=== PATIENT | male | born 1955 | race Two or more races ===

== ENCOUNTER 2017-11-16 14:28 | Inpatient (IN) | payer OTHER ==
[~2017-11-16] VITALS: Ht 190.5 cm; Wt 128.4 kg
--- NOTE | 2017-11-16 14:35 | NUR ---
BIB RA FROM A PARKING LOT AFTER A SYNCOPAL EPISODE,C/O BILAT. KNEE PAIN DUE TO FALL. BS 344 IN FIELD. IV ESTABLISHED IN FIELD ON LFA, 20G. A/OX 4 AT THIS TIME. BREATHING EVEN AND UNLABORED. NO SOB, NAD, VITALS STABLE. SAFETY AND COMFORT MEASURES IN PLACE. AWAITING MD ORDERS.
[2017-11-16 14:51] LABS: BASOPHILS % (AUTO) 0.4 % (0.0-2.0); EOSINOPHILS % (AUTO) 2.3 % (0.0-6.0); HEMATOCRIT 34 % (39-51); HEMOGLOBIN 11.3 g/dL (13.5-17.5); LYMPHOCYTES # (AUTO) 1.2 /CMM (0.8-4.8); LYMPHOCYTES % (AUTO) 18.7 % (20.0-44.0); MEAN CORPUSCULAR HGB CONC 33 g/dl (31.0-36.0); MEAN CORPUSCULAR VOLUME 79 fL (80-96); MONOCYTES # (AUTO) 0.7 /CMM (0.1-1.30); MONOCYTES % (AUTO) 10.6 % (2.0-12.0); NEUTROPHILS # (AUTO) 4.4 /CMM (1.8-8.9); PLATELET COUNT (AUTO) 358 /CMM (150-450); RDW COEFFICIENT OF VARIATION 14.1 (11.5-15.0); RED BLOOD CELL COUNT(AUTO) 4.34 MIL/uL (4.5-6.0); WHITE BLOOD COUNT (AUTO) 6.4 K/uL (4.3-11.0)
[2017-11-16 15:01] LABS: CALCIUM, SERUM 8.9 mg/dL (8.5-10.1); CREATININE 2.7 mg/dL (0.6-1.3); POTASSIUM 4.2 mmol/L (3.5-5.1)
--- NOTE | 2017-11-16 15:02 | NUR ---
CONTAINER REPAIRER AT BEDSIDE FOR BLOOD DRAW.
[2017-11-16 15:06] LABS: INR 1.12 (0.85-1.15)
[2017-11-16 15:10] LABS: TROPONIN I 0.028 ng/mL (0.00-0.056)
--- NOTE | 2017-11-16 15:12 | NUR ---
PATIENT TAKEN TO CT VIA STRETCHER.
--- NOTE | 2017-11-16 15:25 | NUR ---
PATIENT RETURNED FROM CT IN STABLE CONDITION.
[2017-11-16] MEDS ORDERED: HYDROCODONE/APAP 5/325MG 1 EACH TABLET PO ONE (17:00)
[2017-11-16] MEDS ORDERED: HYDROCODONE/APAP 5/325MG 1 EACH TABLET ONE (17:06)
--- NOTE | 2017-11-16 17:16 | NUR ---
CALLED [facility] FOR PANEL CALL AND ANDRAE FUENTES WAS PAGED.
[2017-11-16] MEDS ORDERED: IV NS 0.9% 1,000 ML BAG IV ONE (17:30)
--- NOTE | 2017-11-16 17:54 | NUR ---
PT IS ASSIGNED TO [facility]#: [id number], PT IS DIAGNOSED WITH SYNCOPE, AND ANDRAE FUENTES IS THE ACCEPTING MD
--- NOTE | 2017-11-16 18:20 | NUR ---
REPORT GIVEN TO MOISES NEWTON. PT TRANSPORTED IN STABLE CONDITION.
--- NOTE | 2017-11-16 18:25 | NUR ---
RN NOTE RECEIVED REPORT FROM HAROON NUÑEZ NURSE. RECEIVED PATIENT 62 YEAR OLD MALE BROUGHT IN TO THE HOSPITAL FROM PARKING LOT AFTER A SYNCOPAL EPISODE, C/O BILATERAL KNEE PAIN. PATIENT IS ALERT AND ORIENTED X3 PATIENT IS BREATHING EVEN AND UNLABORED WITH NO DISTRESS NOTED. PATIENT IS ABLE TO VERBALIZE NEEDS AND MAKE THINGS KNOW. REORIENTED PATIENT TO USING THE CALL LIGHT AND T.V. PATIENT IS C/O OF LEFT KNEE PAIN 03/06, FROM REPORT PATIENT ALREADY RECEIVED NORCO FOR PAIN. ELEVATED PATIENTS LEFT LEG ON PILLOW FOR COMFORT. PATIENT ON SANDER AND POLISHER SINUS RHYTHM HR OF 88. RIGHT FA IV SITE GAUGE 20 INTACT AND PATENT. BED LOCKED AND LOW POSITION. ALL SAFETY MEASURES DONE. BED ALARM IN PLACE. PLACED CALL LIGHT WITH IN REACH. WILL ENDORSE TO NEXT SHIFT TO CONTINUE CONTINUITY OF CARE.
[2017-11-16] MEDS ORDERED: IV NS 0.9% 1,000 ML IV PRN (18:28)
[2017-11-16] MEDS ORDERED: ZOLPIDEM TARTRATE 5 MG TABLET PO PRN (18:30)
[2017-11-16] MEDS ORDERED: Z GUARD REMEDY 2 OZ OINT TP PRN (18:30)
[2017-11-16] MEDS ORDERED: MAGNESIUM HYDROXIDE 30 ML UDC PO PRN (18:30)
[2017-11-16] MEDS ORDERED: ONDANSETRON HCL/PF 4 MG/2 ML VIAL IVP PRN (18:30)
[2017-11-16] MEDS ORDERED: HYDROCODONE/APAP 10/325MG 1 EA TABLET PO PRN (18:30)
[2017-11-16] MEDS ORDERED: ACETAMINOPHEN 325 MG TABLET PO PRN (18:30)
[2017-11-16] MEDS ORDERED: HYDROCODONE/APAP 5/325MG 1 EACH TABLET PO PRN (18:30)
[2017-11-16] MEDS ORDERED: MAG HYDROX/AL HYDROX/SIMETH 30 ML UDC PO PRN (18:30)
[2017-11-16 18:43] VITALS: BP 130/67
[2017-11-16] MEDS ORDERED: TRIA15OI2 TP (19:17)
[2017-11-16] MEDS ORDERED: LORA10TA7 PO (19:17)
[2017-11-16] MEDS ORDERED: BUME2TAB3 PO (19:17)
[2017-11-16] MEDS ORDERED: SENN-167 PO (19:17)
[2017-11-16] MEDS ORDERED: GABA-534 PO (19:17)
[2017-11-16] MEDS ORDERED: AMIT50TA3 PO (19:17)
[2017-11-16] MEDS ORDERED: CARV25TA2 PO (19:17)
[2017-11-16] MEDS ORDERED: SIME80TA15 PO (19:17)
[2017-11-16] MEDS ORDERED: APRE30TA2 PO (19:17)
[2017-11-16] MEDS ORDERED: DICL100G16 TP (19:17)
[2017-11-16] MEDS ORDERED: INSU100V7 SQ (19:17)
[2017-11-16] MEDS ORDERED: ATOR80TA PO (19:17)
[2017-11-16] MEDS ORDERED: SECU150S SQ (19:17)
[2017-11-16] MEDS ORDERED: DOCU100C36 PO (19:17)
[2017-11-16] MEDS ORDERED: INSU100I26 SQ (19:17)
[2017-11-16] MEDS ORDERED: RANO500T3 PO (19:17)
[2017-11-16] MEDS ORDERED: BLOO-668 IN (19:17)
[2017-11-16] MEDS ORDERED: HYDR-3026 PO (19:17)
[2017-11-16] MEDS ORDERED: CLOP75TA15 PO (19:17)
[2017-11-16] MEDS ORDERED: ISOS60TA4 PO (19:17)
[2017-11-16] MEDS ORDERED: CLOB15CR4 TP (19:17)
[2017-11-16] MEDS ORDERED: FLUO15CR TP (19:17)
[2017-11-16] MEDS ORDERED: BENA40TA8 PO (19:17)
[2017-11-16] MEDS ORDERED: BISA-79 PO (19:17)
[2017-11-16] MEDS ORDERED: PANT40TA4 PO (19:22)
[2017-11-16] MEDS ORDERED: INSU100V27 SQ (19:22)
[2017-11-16] MEDS ORDERED: AMLO10TA6 PO (19:22)
[2017-11-16] MEDS ORDERED: ASPI-1169 PO (19:22)
--- NOTE | 2017-11-16 19:30 | NUR ---
RN NOTES PT RECEIVED IN BED. PT A/O X3. POSITIVE LEFT LEG SWELLING AND PAIN 10/10 PAIN, NEGATIVE OPEN WOUNDS. LEFT LEG MINOR SWELLING WITH MINOR A MINOR SUPERFICIAL ABRASION. PT NEGATIVE DISTRESS. PT GIVEN NORCO FOR PAIN RESULTING 0/10 PAIN AFTER 1 HOUR. WILL CONTINUE TO MONITOR. BED LOCKED AND LOWEST POSITION. CALL LIGHT WITHIN REACH.
[2017-11-16] MEDS: ENOXAPARIN SODIUM 40 MG/0.4 ML DISP.SYRIN SQ SCH (19:51)
[2017-11-16 20:00] VITALS: BP 130/67
[2017-11-16] MEDS ORDERED: DOCUSATE SODIUM 100 MG CAPSULE PO PRN (20:00)
[2017-11-16] MEDS ORDERED: BLOOD SUGAR DIAGNOSTIC 1 EACH STRIP IN SCH (20:00)
[2017-11-16] MEDS ORDERED: BISACODYL (5 MG) 5 MG TABLET.DR PO PRN (20:00)
[2017-11-16] MEDS ORDERED: DEXTROSE 50%-WATER 50 ML DISP.SYRIN IV PRN (20:00)
[2017-11-16] MEDS ORDERED: SIMETHICONE 80 MG TAB.CHEW PO PRN (20:00)
[2017-11-16] MEDS ORDERED: SECUKINUMAB 150 MG SQ SCH (20:00)
[2017-11-16] MEDS ORDERED: CLOBETASOL 0.05% CREAM 15 GM TUBE TP PRN (20:00)
[2017-11-16] MEDS: *INSULIN REGULAR(HUMULIN R)HUM 100 UNIT/ML VIAL SQ PRN (20:23)
[2017-11-16] MEDS ORDERED: DICLOFENAC TOPICAL 100 GM GEL..GM. TP SCH (21:00)
[2017-11-16] MEDS: INSULIN GLARGINE, 100 UNIT/ML CARTRIDGE SQ SCH (21:36)
[2017-11-16] MEDS: CARVEDILOL 12.5 MG TABLET PO SCH (21:52)
[2017-11-16] MEDS: AMITRIPTYLINE HCL 25 MG TABLET PO SCH (21:52)
[2017-11-16] MEDS: BLOOD SUGAR DIAGNOSTIC 1 EACH STRIP VI SCH (21:59)
[2017-11-16 22:00] VITALS: BP 130/67
[2017-11-17] VITALS (8 sets, daily range): BP systolic 87–127; BP diastolic 41–73
[2017-11-17 06:51] LABS: BASOPHILS % (AUTO) 0.5 % (0.0-2.0); EOSINOPHILS % (AUTO) 4.5 % (0.0-6.0); HEMATOCRIT 32 % (39-51); HEMOGLOBIN 10.6 g/dL (13.5-17.5); LYMPHOCYTES # (AUTO) 1.6 /CMM (0.8-4.8); LYMPHOCYTES % (AUTO) 24.6 % (20.0-44.0); MEAN CORPUSCULAR HGB CONC 34 g/dl (31.0-36.0); MEAN CORPUSCULAR VOLUME 80 fL (80-96); MONOCYTES # (AUTO) 0.9 /CMM (0.1-1.30); MONOCYTES % (AUTO) 13.1 % (2.0-12.0); NEUTROPHILS # (AUTO) 3.8 /CMM (1.8-8.9); NEUTROPHILS % (AUTO) 57.3 % (43.0-81.0); PLATELET COUNT (AUTO) 312 /CMM (150-450); RDW COEFFICIENT OF VARIATION 15.2 (11.5-15.0); RED BLOOD CELL COUNT(AUTO) 3.97 MIL/uL (4.5-6.0); WHITE BLOOD COUNT (AUTO) 6.6 K/uL (4.3-11.0)
--- NOTE | 2017-11-17 07:17 | NUR ---
RN NOTES NEGATIVE CHANGE THROUGHOUT SHIFT. PT STABLE CONDITION. BED LOCKED/ LOWEST POSITON. CALL LIGHT WITHIN REACH. WILL ENDORSE TO ONCOMING NURSE.
[2017-11-17 07:24] LABS: BILIRUBIN,TOTAL 0.5 mg/dL (0.2-1.0); CALCIUM, SERUM 8.9 mg/dL (8.5-10.1); CREATININE 2.5 mg/dL (0.6-1.3); MAGNESIUM 2.3 mg/dL (1.8-2.4); POTASSIUM 3.8 mmol/L (3.5-5.1); TOTAL PROTEIN, SERUM 8.1 g/dL (6.4-8.2)
[2017-11-17 07:40] LABS: THYROID STIMULATING HORMONE 0.25 uIU/mL (0.358-3.74)
[2017-11-17] MEDS: ISOSORBIDE MONONITRATE (30MG) 30 MG TAB.SR.24H PO SCH ×2 (08:00→15:19)
--- NOTE | 2017-11-17 08:03 | NUR ---
CONSTRUCTION CHECKER NOTE RESTING COMFORTABLY IN BED ,ALL NEEDS ATTENDED, ON NPO STATUS ORDERED AT THIS TIME , RT FA HL INTACT BE IN LOWEST AND LOCKED POSITION , ON E RA NO SOB NOTED ,ON TELE MONITOR SR ,CALL LIGHT WITHIN REACH , WILL CONT TO MONITOR CLOSELY
[2017-11-17] MEDS ORDERED: ATORVASTATIN 40 MG TABLET PO SCH (09:00)
[2017-11-17] MEDS: BENAZEPRIL HCL 20 MG TABLET PO SCH (09:00)
[2017-11-17] MEDS: CARVEDILOL 12.5 MG TABLET PO SCH ×2 (09:00→21:19)
[2017-11-17] MEDS ORDERED: Medication Not On Formulary EA (Ranolazine (Ranexa) 500 MG) PO SCH (09:00)
[2017-11-17] MEDS ORDERED: Medication Not On Formulary EA (Apremilast (Otezla) 30 MG) PO SCH (09:00)
[2017-11-17] MEDS: AMLODIPINE BESYLATE 10 MG TABLET PO SCH (09:00)
[2017-11-17] MEDS ORDERED: METOLAZONE 2.5 MG TABLET PO SCH (09:00)
[2017-11-17] MEDS: PANTOPRAZOLE 40 MG VIAL IV SCH (09:01)
[2017-11-17] MEDS: ASPIRIN 81 MG TAB.CHEW PO SCH (09:02)
[2017-11-17] MEDS: GABAPENTIN 300 MG CAPSULE PO SCH ×3 (09:02→17:09)
[2017-11-17] MEDS: CLOPIDOGREL BISULFATE 75 MG TABLET PO SCH (09:08)
[2017-11-17] MEDS: INSULIN GLARGINE, 100 UNIT/ML CARTRIDGE SQ SCH ×2 (09:14→17:12)
[2017-11-17] MEDS: BLOOD SUGAR DIAGNOSTIC 1 EACH STRIP VI SCH ×4 (09:19→21:18)
--- NOTE | 2017-11-17 09:57 | NUR ---
FURNITURE ASSEMBLER AND INSTALLER NOTE SEEN BY DR PORTER ON OK TO START TO EAT , STARTED ON IVF ORDERED
--- NOTE | 2017-11-17 11:11 | NUR ---
LABORER CONCRETE PLANT NOTE PER PHARMACY ASKED PATIENT TO BRING HOME MEDS HEIDI VALDES , STATED THAT WILL ASK FAMILY TO BRING
[2017-11-17] MEDS: INSULIN REGULAR, HUMAN 100 UNIT/ML 3 ML VIAL SQ PRN ×2 (12:21→21:18)
--- NOTE | 2017-11-17 12:38 | NUR ---
SHEETMETAL PATTERNMAKER NOTE SEEN BY DR KRAUSE DIRECTOR OF LOSS PREVENTION NOTIFIED ABOUT RESULT ORTHOSTATIC PB , OK TO STOP IVF Addendum: 11/17/17 at 1241 by DAVID ROE RN NOTIFIED TO DR MAK THAT BP MEDS WERE HOLD WAS BP 97/52
--- NOTE | 2017-11-17 14:20 | NUR ---
CONCRETE FLOAT MAKER NOTE US DONE ORDERED
[2017-11-17] MEDS: MORPHINE SULFATE INJ 4 MG/ML DISP.SYRIN IV PRN ×2 (14:52→21:18)
--- NOTE | 2017-11-17 15:05 | NUR ---
BRAND ADVOCATE NOTE PT EVAL DONE, ABLE TO AMBULATE WITH WALKER WITH MIN ASSISTANCE WILL F\U
[2017-11-17 17:05] LABS: CREATININE, URINE 80.4 MG/DL (30.0-125.0); URINE TOTAL PROTEIN 14.7 mg/dL (0-11.9)
[2017-11-17] MEDS: AMITRIPTYLINE HCL 25 MG TABLET PO SCH (17:09)
[2017-11-17] MEDS: SENNOSIDES 8.6 MG TABLET PO SCH (17:10)
--- NOTE | 2017-11-17 17:20 | NUR ---
SENIOR QA AUTOMATION ENGINEER NOTE CALLED TO ZENAIDA TORRES NOTIFIED THAT LT KNEE PAIN NORCO AND MORPHINE 2 MG IV WAS GIVEN AWARE OF X RAY LT KNEE STATED THAT WILL SEE PATIENT TOMORROW, OK TO PLACE ICE PACK AT THIS TIME ,WILL F\U Addendum: 11/17/17 at 1750 by DAVID ROE RN ICE PACK APPLIED WILL CONT TO MONITOR
[2017-11-17 17:27] LABS: APPEARANCE,URINE CLEAR (CLEAR); BILIRUBIN,URINE NEGATIVE (NEGATIVE); BLOOD, URINE NEGATIVE Ery/uL (NEGATIVE); COLOR,URINE YELLOW (YELLOW); KETONES,URINE NEGATIVE (NEGATIVE); LEUKOCYTE ESTERASE ,URINE NEGATIVE (NEGATIVE); NITRITE, URINE NEGATIVE (NEGATIVE); PH,URINE 5.5 (5.0-8.0); PROTEIN,URINE NEGATIVE (NEGATIVE); UGLUCOSE NEGATIVE (NEGATIVE); UROBILINOGEN,URINE 0.2 EU/dL (0.2)
[2017-11-17 17:56] LABS: EOSINOPHIL,URINE None Seen
--- NOTE | 2017-11-17 18:55 | NUR ---
MECHANICAL FITTER NOTE CAROTID STUDY DONE ORDERED, HAVING DINNER , ABLE TO FED SELF
--- NOTE | 2017-11-17 19:20 | NUR ---
TARIFF EXPERT OPENING NOTES RECEIVED REPORT FROM DAVID NEWTON. PATIENT A/A/O X3, ABLE TO MAKE NEEDS KNOWN. BREATHING EVEN & UNLABORED, TOLERATING ROOM AIR. ON TELE W/ SINUS RHYTHM, HR 82. NO RESPIRATORY OR CARDIAC DISTRESS NOTED. RIGHT FOREARM IV #20 INTACT & PATENT W/ DRESSING CDI, SALINE LOCKED. SKIN WARM, DRY & INTACT. SOME SWELLING NOTED ON LEFT KNEE. PATIENT C/O LEFT KNEE PAIN 2 OUT OF 10[address] ADVISED TO [address] ICE BAG & REST KNEE. PATIENT ABLE TO USE URINAL & AMBULATE TO BATHROOM W/ ASSIST. SAFETY MEASURES IN PLACE & INSTRUCTED TO USE CALL LIGHT FOR ASSISTANCE. WILL CONTINUE TO MONITOR.
[2017-11-17] MEDS: ENOXAPARIN SODIUM 40 MG/0.4 ML DISP.SYRIN SQ SCH (21:17)
[2017-11-18] VITALS: BP 111/56
[2017-11-18 04:00] VITALS: BP_SYST 103; BP_DIAS 55; BP_DIAS 65
[2017-11-18 06:52] LABS: BASOPHILS % (AUTO) 0.6 % (0.0-2.0); EOSINOPHILS % (AUTO) 5.6 % (0.0-6.0); HEMATOCRIT 31 % (39-51); HEMOGLOBIN 10.4 g/dL (13.5-17.5); LYMPHOCYTES # (AUTO) 1.6 /CMM (0.8-4.8); LYMPHOCYTES % (AUTO) 28.5 % (20.0-44.0); MEAN CORPUSCULAR HGB CONC 33 g/dl (31.0-36.0); MEAN CORPUSCULAR VOLUME 79 fL (80-96); MONOCYTES # (AUTO) 0.6 /CMM (0.1-1.30); MONOCYTES % (AUTO) 10.4 % (2.0-12.0); NEUTROPHILS % (AUTO) 54.9 % (43.0-81.0); PLATELET COUNT (AUTO) 337 /CMM (150-450); RDW COEFFICIENT OF VARIATION 15.3 (11.5-15.0); RED BLOOD CELL COUNT(AUTO) 3.91 MIL/uL (4.5-6.0); WHITE BLOOD COUNT (AUTO) 5.6 K/uL (4.3-11.0)
[2017-11-18 07:08] LABS: ALBUMIN 2.9 g/dL (3.4-5.0); BILIRUBIN,TOTAL 0.4 mg/dL (0.2-1.0); CALCIUM, SERUM 8.8 mg/dL (8.5-10.1); CREATININE 1.8 mg/dL (0.6-1.3); MAGNESIUM 2.1 mg/dL (1.8-2.4); TOTAL PROTEIN, SERUM 7.9 g/dL (6.4-8.2)
--- NOTE | 2017-11-18 07:30 | NUR ---
FIRE EXTINGUISHER INSTALLER INITIAL NOTES RECEIVED PATIENT SLEEPING IN BED, AOX3, ON ROOM AIR, ABLE TO AMBULATE, LEFT KNEE PAIN STILL PRESENT, R FA 20G, SL CLEAN AND PATENT, ON TELE MONITOR SR, BED IN LOW AND LOCKED POSITION, CALL LIGHT WITHIN REACH.
[2017-11-18] MEDS: BLOOD SUGAR DIAGNOSTIC 1 EACH STRIP VI SCH ×4 (07:55→22:41)
[2017-11-18 08:00] VITALS: BP 95/59
[2017-11-18] MEDS: ISOSORBIDE MONONITRATE (30MG) 30 MG TAB.SR.24H PO SCH ×2 (08:00→16:55)
--- NOTE | 2017-11-18 08:00 | NUR ---
ACCOUNT DIRECTOR NOTES PATIENT SEEN BY DR RDOGERS
--- NOTE | 2017-11-18 08:30 | NUR ---
CREDIT PRODUCT ANALYST NOTES PATIENT RECEIVING ECHO AT THIS TIME
[2017-11-18] MEDS: CARVEDILOL 12.5 MG TABLET PO SCH ×2 (08:31→21:26)
[2017-11-18] MEDS: BENAZEPRIL HCL 20 MG TABLET PO SCH (08:31)
[2017-11-18] MEDS: AMLODIPINE BESYLATE 10 MG TABLET PO SCH (08:32)
[2017-11-18] MEDS: GABAPENTIN 300 MG CAPSULE PO SCH ×3 (08:33→17:06)
[2017-11-18] MEDS: ASPIRIN 81 MG TAB.CHEW PO SCH (08:33)
[2017-11-18] MEDS: CLOPIDOGREL BISULFATE 75 MG TABLET PO SCH (08:33)
[2017-11-18] MEDS: INSULIN GLARGINE, 100 UNIT/ML CARTRIDGE SQ SCH ×2 (08:36→17:09)
[2017-11-18] MEDS: INSULIN REGULAR, HUMAN 100 UNIT/ML 3 ML VIAL SQ PRN ×3 (08:39→17:41)
--- NOTE | 2017-11-18 08:39 | NUR ---
WOUND CARE CONSULT: PT SEEN FOR LEFT ELBOW. PT PRESENTS WITH DISCOLORATION TO BILATERAL ELBOWS BUT REPORTS NO DISCOMFORT TO ELBOWS. PT REPORTS PAIN TO LEFT KNEE WHICH IS SWOLLEN. PT IS CONTINENT AND AMBULATORY WITH WALKER AND ASSISTANCE. PT REFUSED FULL SKIN ASSESSMENT OF GROIN, BUTTOCKS AND BACK. WILL SEE PRN. CURRENT ADRIANA SCORE IS 19. Addendum: 11/18/17 at 0844 by ROGERS JOHNSON WNDNU Amended: Links added.
[2017-11-18] MEDS: PANTOPRAZOLE 40 MG VIAL IV SCH (08:43)
[2017-11-18] MEDS: MORPHINE SULFATE INJ 4 MG/ML DISP.SYRIN IV PRN (11:17)
[2017-11-18 16:00] VITALS: BP 103/65
[2017-11-18] MEDS: SENNOSIDES 8.6 MG TABLET PO SCH (17:06)
[2017-11-18] MEDS: AMITRIPTYLINE HCL 25 MG TABLET PO SCH (17:06)
--- NOTE | 2017-11-18 18:29 | NUR ---
SPOON MAKER END NOTES PATIENT RESTIGN IN BED, NO SIGNS OF DISTRESS, ALL NEEDS ATTENDED TO, WILL ENDORSE TO SILICATOR FOR CONTINUITY OF CARE.
[2017-11-18 20:00] VITALS: BP 118/59
--- NOTE | 2017-11-18 20:00 | NUR ---
ZONIA RN NOTES RECEIVED BEDSIDE REPORT FROM AM NURSE. PT IN BED HAVING DINER, FAMILY MEMBERS BEDSIDE. PT IS A/O X4, NO APPARENT DISTRESS NOTED AT THIS TIME. PT ON RA WITH SPO2 OF 95%, V/S ARE WNL WITH COMPLAIN OF PAIN 5/10. ALL SAFETY MEASURES ARE IMPLEMENTED, BED IS LOCKED,LOWEST POSITION, CALL LIGHT WITHIN REACH. WILL CONT. TO MONITOR.
[2017-11-18] MEDS: ENOXAPARIN SODIUM 40 MG/0.4 ML DISP.SYRIN SQ SCH (21:25)
[2017-11-18] MEDS: *INSULIN REGULAR(HUMULIN R)HUM 100 UNIT/ML VIAL SQ PRN (22:41)
--- NOTE | 2017-11-18 22:50 | NUR ---
ZONIA RN NOTES PT IS STABLE AND BEING TRANSFERRED TO MED-SURG 2, REPORT IS GIVEN BY PHONE TO LAMAR JONES.
--- NOTE | 2017-11-18 23:12 | NUR ---
RN NOTES RECEIVED PATIENT FROM ZONIA, STABLE CONDITION, ALERT AND ORIENTED X4, CALM, NO DISTRESS, V/S STABLE, ON ROOM AIR, SPO2 99%, LEFT KNEE SWELLING +2, TENDER AND PAINFUL TO TOUCH, SWELLING OF LEFT FOOT, UNSTEADY GAIT, AMBULATES WITH FWW, SLOW AND PAINFUL LEFT KNEE ON AMBULATION. CONTINENT OF BOWEL AND BLADDER, EDUCATED PATIENT TO DRINK ONLY ONE PITCHER OF WATER DURING SHIFT, WAS GIVEN BUMEX. INVENTORY DONE, KEPT SAFE, CALL LIGHT WITHIN REACH.
[2017-11-18 23:30] VITALS: BP 133/68
[2017-11-19 00:05] VITALS: BP 133/68
[2017-11-19] MEDS: INSULIN REGULAR, HUMAN 100 UNIT/ML 3 ML VIAL SQ PRN (06:12)
[2017-11-19] MEDS: BLOOD SUGAR DIAGNOSTIC 1 EACH STRIP VI SCH ×2 (06:14→11:40)
--- NOTE | 2017-11-19 06:41 | NUR ---
RN NOTES PATIENT IS ALERT AND AWAKE, NO SOB, NO COMPLAIN OF PAIN, NO ADVERSE CHANGE OF CONDITION DURING SHIFT, COMPLIANT OF TREATMENT. NEEDS ATTENDED, CALL LIGHT WITHIN REACH.
--- NOTE | 2017-11-19 07:41 | NUR ---
MS RN OPENING NOTES RECEIVED PT LAYING IN BED WITH HOB SLIGHTLY ELEVATED. AWAKE AND RESPONSIVE. RESPIRATIONS ARE EVEN AND UNLABORED, NOT IN ANY ACUTE DISTRESS NOTED. PT STATES HE DENIES ANY PAIN AT THIS TIME. BILATERAL HAND BUSHING AND BROACH OPERATOR ARE STRONG AND EQUAL. NO C/O SOB, N/V. IV SITE INTACT, NO INFILTRATION NOTED.DRESSING KEPT CLEAN AND DRY. SAFETY MEASURES ARE IN PLACE. CALL LIGHT IS LEFT WITHIN REACH. WILL CONTINUE TO MONITOR THROUGHOUT SHIFT FOR CONTINUITY OF CARE.
[2017-11-19 08:00] VITALS: BP 119/51
[2017-11-19] MEDS: ASPIRIN 81 MG TAB.CHEW PO SCH (08:34)
[2017-11-19] MEDS: ISOSORBIDE MONONITRATE (30MG) 30 MG TAB.SR.24H PO SCH (08:34)
[2017-11-19] MEDS: PANTOPRAZOLE 40 MG VIAL IV SCH (08:34)
[2017-11-19] MEDS: CLOPIDOGREL BISULFATE 75 MG TABLET PO SCH (08:34)
[2017-11-19] MEDS: AMLODIPINE BESYLATE 10 MG TABLET PO SCH (08:35)
[2017-11-19] MEDS: GABAPENTIN 300 MG CAPSULE PO SCH ×2 (08:35→12:07)
[2017-11-19 08:36] VITALS: BP 119/51
[2017-11-19] MEDS: CARVEDILOL 12.5 MG TABLET PO SCH (08:36)
[2017-11-19] MEDS: INSULIN GLARGINE, 100 UNIT/ML CARTRIDGE SQ SCH (08:40)
--- NOTE | 2017-11-19 08:51 | NUR ---
MS RN NOTES PT SEEN AND EXAMINED BY QUENTIN FUENTES. AWAITING NEPHROLOGY TO EVALUATE PT.
[2017-11-19] MEDS ORDERED: BENAZEPRIL HCL 10 MG TABLET PO SCH (09:00)
[2017-11-19 09:04] LABS: BASOPHILS % (AUTO) 0.4 % (0.0-2.0); EOSINOPHILS % (AUTO) 4.9 % (0.0-6.0); HEMATOCRIT 34 % (39-51); HEMOGLOBIN 11.2 g/dL (13.5-17.5); LYMPHOCYTES # (AUTO) 1.4 /CMM (0.8-4.8); LYMPHOCYTES % (AUTO) 26.2 % (20.0-44.0); MEAN CORPUSCULAR HGB CONC 33 g/dl (31.0-36.0); MEAN CORPUSCULAR VOLUME 79 fL (80-96); MONOCYTES # (AUTO) 0.5 /CMM (0.1-1.30); MONOCYTES % (AUTO) 9.6 % (2.0-12.0); NEUTROPHILS # (AUTO) 3.1 /CMM (1.8-8.9); NEUTROPHILS % (AUTO) 58.9 % (43.0-81.0); PLATELET COUNT (AUTO) 369 /CMM (150-450); RDW COEFFICIENT OF VARIATION 15.2 (11.5-15.0); RED BLOOD CELL COUNT(AUTO) 4.28 MIL/uL (4.5-6.0); WHITE BLOOD COUNT (AUTO) 5.3 K/uL (4.3-11.0)
[2017-11-19 09:20] LABS: CALCIUM, SERUM 9.2 mg/dL (8.5-10.1); CREATININE 1.7 mg/dL (0.6-1.3); POTASSIUM 4.5 mmol/L (3.5-5.1)
--- NOTE | 2017-11-19 09:30 | NUR ---
MS RN NOTES-- ORTHOSTATICS LYING 119/74 HR 71 SITTING 105/64 HR 71 STANDING 102/59 HR 74 NO S/SX OF HYPO/HYPERTENSION AT THIS TIME. WILL CONTINUE TO MONITOR THE PT.
--- NOTE | 2017-11-19 11:42 | NUR ---
MS RN NOTES PER QUENTIN ABEBE, HE WILL CONTACT NEPHROLOGY. BLOOD SUGAR IS 139. PT REFUSES 2 UNITS OF INSULIN. NO S/SX OF HYPO/HYPERGLYCEMIA NOTED. WILL CONTINUE TO MONITOR.
[2017-11-19 13:12] LABS: PTH, INTACT 51 pg/mL (15-65)
--- NOTE | 2017-11-19 15:22 | NUR ---
MS AMA NOTE PT HAS REQUESTED TO LEAVE. PER DR. FUENTES, PT NEEDS CLEARANCE FROM NEPHROLOGY AND HAS NOT RECEIVED A CALL BACK THIS AM. PT WANTS TO GO AMA. EXPLAINED THE RISKS AND BENEFITS OF LEAVING AMA AND PT STATED "GIVE ME THE FORM NOW, I WANT TO GO." DR. FUENTES MADE AWARE. PT SIGNED AMA FORM AND PLACED IN PT'S CHART. PT IS A/O X4, AFEBRILE. RESPIRATIONS ARE EVEN AND UNLABORED, NOT IN ANY ACUTE DISTRESS NOTED. DENIES ANY PAIN AT THIS TIME, NO C/O SOB OR N/V. PT STILL HAS SOME SWELLING TO LEFT KNEE AND ABRASION TO RIGHT KNEE. REMOVED IV, APPLIED PRESSURE AND TOLERATED WELL. ID BAND ALSO REMOVED. FRIEND IS HERE TO PARTY PLAN SALES UNIT SALES LEADER THE PATIENT. PT ABLE TO AMBULATE WITH FWW, HOWEVER FOR SAFETY REASONS PT WAS ACCOMPANIED VIA WHEELCHAIR TO PERSONAL VEHICLE. ALL BELONGINGS TAKEN WITH PT AND BELONGING LIST WAS SIGNED.
[2017-11-22 09:13] LABS: *SPE A/G RATIO 0.7 (0.7-1.7); *SPE ALPHA-1-GLOBULIN 0.3 g/dL (0.0-0.4); *SPE ALPHA-2-GLOBULIN 1.2 g/dL (0.4-1.0); *SPE BETA GLOBULIN 0.8 g/dL (0.7-1.3); *SPE GLOBULIN, TOTAL 4.1 g/dL (2.2-3.9); *SPE M-SPIKE Not Observed g/dL (Not Observed); *SPEGAMMA GLOBULIN 1.8 g/dL (0.4-1.8)
== END 2017-11-19 15:20 | disposition left against medical advice (07) | DRG 48 ==
LOC: ER 14:31 → TELE1 18:29 → MEDSG1 11-18 09:49 → MEDSG2 11-18 22:48
PROVIDERS: ADMIT Hospitalist; ATTEND Hospitalist
DX: G90.8 Other disorders of autonomic nervous system (principal); N17.0 Acute kidney failure with tubular necrosis; I13.0 Hypertensive heart and chronic kidney disease with heart failure and stage 1 through stage 4 chronic kidney disease, or unspecified chronic kidney disease; I95.9 Hypotension, unspecified; I50.22 Chronic systolic (congestive) heart failure; E87.1 Hypo-osmolality and hyponatremia; E11.21 Type 2 diabetes mellitus with diabetic nephropathy; E11.22 Type 2 diabetes mellitus with diabetic chronic kidney disease; E11.65 Type 2 diabetes mellitus with hyperglycemia; F17.210 Nicotine dependence, cigarettes, uncomplicated; D50.9 Iron deficiency anemia, unspecified; N18.9 Chronic kidney disease, unspecified; Z95.1 Presence of aortocoronary bypass graft; I25.10 Atherosclerotic heart disease of native coronary artery without angina pectoris; E78.5 Hyperlipidemia, unspecified; M19.90 Unspecified osteoarthritis, unspecified site; E88.81 Metabolic syndrome and other insulin resistance; E66.01 Morbid (severe) obesity due to excess calories; Z68.35 Body mass index [BMI] 35.0-35.9, adult; E86.0 Dehydration; I25.5 Ischemic cardiomyopathy; Z91.14 Patient's other noncompliance with medication regimen; I25.2 Old myocardial infarction; E11.319 Type 2 diabetes mellitus with unspecified diabetic retinopathy without macular edema
CPT/HCPCS: 36415; 70450-TC; 71045-TC; 73564-TC; 76770-TC; 80048-TC; 80053-TC; 80061-TC; 80305; 81000-TC; 82550-TC; 82570-TC; 82962-TC; 83735-TC; 83970; 84100-TC; 84155; 84155-TC; 84165; 84300-TC; 84443-TC; 84484-TC; 85025-TC; 85730-TC; 87081-TC; 93307-TC; 93880-TC; 97116-TC; 97530-TC; C9113; J1650; J1815; J2270; J7030

== ENCOUNTER 2021-08-19 15:04 | Emergency (ER) | payer MEDICARE, OTHER ==
[~2021-08-19] VITALS: Ht 185.4 cm; Wt 140.6 kg
[~2021-08-19 15:04] MED LIST: AMIT50TA3 PO; AMLO-213 PO; APRE30TA2 PO; ASPI-1169 PO; ATOR80TA PO; BISA-79 PO; BLOO-668 IN; BUME2TAB7 PO; CARV25TA2 PO; CLOB15CR4 TP; CLOP75TA15 PO; DICL100G16 TP; DOCU100C36 PO; FLUO30CR11 TP; GABA-534 PO; HYDR-500 PO; INSU100I26 SQ; INSU100V27 SQ; ISOS60TA72 PO; LORA10TA7 PO; PANT40TA49 PO; RANO500T3 PO; SECU150S SQ; SENN-261 PO; SIME80TA15 PO; TRIA15OI2 TP
--- NOTE | 2021-08-19 15:04 | NUR ---
PT BIBRA 860 FROM HOME C/O OPEN SURGICAL SITE ON THE LEFT KNEE S/P KNEE REPLACEMENT 1 MONTH AGO AT [facility]. PT IS AAOX4, NOT IN RESPIRATORY DISTRESS, V/S STABLE, KEPT RESTED AND COMFORTABLE. WILL CONTINUE TO MONITOR.
[2021-08-19] MEDS ORDERED: LIDOCAINE 1%-EPI 1:100,000 20 ML VIAL ONE (15:30)
--- NOTE | 2021-08-19 16:00 | NUR ---
SURGICAL SITE SUTURED BY .
--- NOTE | 2021-08-19 16:15 | NUR ---
YARD LABORER AT BEDSIDE FOR WOUND DRESSING AND APPLICATION OF KNEE IMMOBILIZER.
--- NOTE | 2021-08-19 16:38 | NUR ---
Patient discharged to home in stable condition. Written and verbal after care instructions given. Patient verbalizes understanding of instruction.
[2021-08-19 16:52] VITALS: BP 139/88
== END 2021-08-19 16:52 | disposition home or self-care (01) ==
LOC: ER 15:07
DX: S81.012A Laceration without foreign body, left knee, initial encounter (principal); T81.30XA Disruption of wound, unspecified, initial encounter; I10 Essential (primary) hypertension; E11.9 Type 2 diabetes mellitus without complications; Z96.652 Presence of left artificial knee joint; Z98.890 Other specified postprocedural states; Z79.899 Other long term (current) drug therapy; Z79.82 Long term (current) use of aspirin; Z79.4 Long term (current) use of insulin; X58.XXXA Exposure to other specified factors, initial encounter; Y93.89 Activity, other specified; Y92.89 Other specified places as the place of occurrence of the external cause; Y99.8 Other external cause status
CPT/HCPCS: 12001; 99283; A6403; J3490

== ENCOUNTER 2022-09-23 14:31 | Inpatient (IN) | payer MEDICARE, OTHER ==
[~2022-09-23] VITALS: Ht 185.4 cm; Wt 121.1 kg
--- NOTE | 2022-09-23 15:25 | NUR ---
L ankle pain, bleeding from surgery site done on 08/26/[address] keys
[2022-09-23] MEDS ORDERED: oxyCODONE/APAP (5/325 MG) 1 UDTAB TABLET PO ONE (16:30)
[2022-09-23 16:33] LABS: BASOPHILS % (AUTO) 0.4 % (0.0-2.0); EOSINOPHILS % (AUTO) 2.5 % (0.0-6.0); HEMATOCRIT 28 % (39-51); HEMOGLOBIN 9.2 g/dL (13.5-17.5); LYMPHOCYTES # (AUTO) 1.4 K/uL (0.8-4.8); LYMPHOCYTES % (AUTO) 16.5 % (20.0-44.0); MEAN CORPUSCULAR HGB CONC 33 g/dl (31.0-36.0); MEAN CORPUSCULAR VOLUME 79 fL (80-96); MONOCYTES # (AUTO) 0.8 K/uL (0.1-1.30); MONOCYTES % (AUTO) 9.7 % (2.0-12.0); NEUTROPHILS # (AUTO) 5.8 K/uL (1.8-8.9); NEUTROPHILS % (AUTO) 70.9 % (43.0-81.0); PLATELET COUNT (AUTO) 271 K/uL (150-450); RED BLOOD CELL COUNT(AUTO) 3.57 MIL/uL (4.5-6.0); WHITE BLOOD COUNT (AUTO) 8.2 K/uL (4.3-11.0)
[2022-09-23 16:40] LABS: CALCIUM, SERUM 8.9 mg/dL (8.5-10.1); CREATININE 2.6 mg/dL (0.6-1.3)
[2022-09-23 16:41] LABS: POTASSIUM 2.8 mmol/L (3.5-5.1)
[2022-09-23] MEDS ORDERED: oxyCODONE/APAP (5/325 MG) 1 UDTAB TABLET ONE (16:45)
[2022-09-23 16:46] LABS: ALBUMIN 2.8 g/dL (3.4-5.0); BILIRUBIN,DIRECT 0.2 mg/dL (0.0-0.2); BILIRUBIN,TOTAL 0.5 mg/dL (0.2-1.0); TOTAL PROTEIN, SERUM 7.7 g/dL (6.4-8.2)
--- NOTE | 2022-09-23 16:59 | NUR ---
covid swab taken
[2022-09-23] MEDS ORDERED: POTASSIUM CHLORIDE 20 MEQ POWDER PACKET PO ONE (17:00)
[2022-09-23] MEDS ORDERED: POTASSIUM CHLORIDE 20 MEQ POWDER PACKET ONE (17:07)
--- NOTE | 2022-09-23 18:30 | NUR ---
MOVE SHEET SUBMITTED.
--- NOTE | 2022-09-23 18:47 | NUR ---
GOT BED 322-1 > 193
--- NOTE | 2022-09-23 19:25 | NUR ---
RECEIVED REPORT FROM LAMAR HEATH. PATIENT AAOX4, ABLE TO MAKE NEEDS KNOWN. CAME EARLIER WITH C/O LEFT ANKLE PAIN, BLEEDING AT SITE. PLACED COMFORTABLY IN BED, NEEDS ATTENDED. VITALS CHECKED.
--- NOTE | 2022-09-23 19:30 | NUR ---
IV CANNULA 18GA INSERTED TO LFA.
--- NOTE | 2022-09-23 19:44 | NUR ---
DRESSING DONE TO LEFT ANKLE WOUND
--- NOTE | 2022-09-23 20:07 | NUR ---
REPORT GIVEN TO LAMAR GRAY
[2022-09-23] MEDS ORDERED: CEFAZOLIN 1 GM in IV D5W 50 ML IV SCH (21:00)
[2022-09-23] MEDS ORDERED: ONDANSETRON HCL/PF 4 MG/2 ML VIAL IVP PRN (21:00)
[2022-09-23] MEDS ORDERED: hydrALAZINE HCL IV 20 MG VIAL IV PRN (21:00)
[2022-09-23] MEDS ORDERED: MAG HYDROX/AL HYDROX/SIMETH 30 ML UDC PO PRN (21:00)
[2022-09-23] MEDS ORDERED: Z GUARD REMEDY 4 OZ OINT TP PRN (21:00)
[2022-09-23] MEDS ORDERED: CEFAZOLIN 1 GM VIAL IV SCH (21:00)
[2022-09-23] MEDS ORDERED: ZOLPIDEM TARTRATE 5 MG TABLET PO PRN (21:00)
[2022-09-23] MEDS ORDERED: DEXTROSE 50%-WATER 50 ML DISP.SYRIN IV PRN (21:00)
[2022-09-23] MEDS ORDERED: IV NS 0.9% 1,000 ML IV ONE (21:00)
[2022-09-23] MEDS ORDERED: ACETAMINOPHEN 325 MG TABLET PO PRN (21:00)
--- NOTE | 2022-09-23 21:02 | NUR ---
TRANSFERED TO [facility]
--- NOTE | 2022-09-23 22:15 | NUR ---
MIRROR SILVERER NOTE RECEIVED PATIENT FROM ED AT 2105 VIA WHEELCHAIR WITH DX OF POSTOPERATIVE WOUND DEHISCENCE. PATIENT IS AWAKE, A/O X4. GREENLANDIC SPEAKING UNDERSTAND [place]. ON ROOM AIR; TOLERATING WELL SATURATING @ 99%. IN NO ACUTE DISTRESS. DENIES ANY PAIN OR DISCOMFORT AT THIS TIME. WITH IV ACCESS ON LEFT FORE ARM 18G; PATENT, INTACT AND SALINE LOCKED. NO S/S OF INFILTRATION NOTED. VITAL SIGNS TAKEN FOLLOWS: T 98.6, IN 73, RR 18, O2 SAT 99%, BP 131/70 MM HG. SKIN AND BODY ASSESSMENT DONE; LEFT ANKLE WOUND NOTED. PICTURES TAKEN AND PLACED TO CHART. ORIENTED TO STAFF, ROOM AND UNIT . ALL BELONGINGS ACCOUNTED FOR. SAFETY PRECAUTIONS IMPLEMENTED: CALL LIGHT AND TABLE WITHIN REACH, SIDE RAILS UP X 2, BED IN LOWEST LOCKED POSITION. WILL CONTINUE PLAN OF CARE.
[2022-09-23] MEDS ORDERED: CEFAZOLIN 1 GM ONE (22:28)
[2022-09-23] MEDS: BLOOD SUGAR DIAGNOSTIC 1 EACH STRIP IN SCH (22:32)
[2022-09-23] MEDS: HEPARIN SODIUM, PORCINE 5000 UNITS/1 ML VIAL SQ SCH (23:05)
--- NOTE | 2022-09-23 23:05 | NUR ---
RN NOTE HGB 9.2, HCT 28, PLT 271. WITH PENDING SURGERY TOMORROW. CONNOR HERNANDEZ NP HOSPITALIST MADE AWARE THAT IT IS OKAY TO GIVE HEPARIN THEN HOLD TOMORROW. HEPARIN 5000 UNITS GIVEN SQ ORDERED. NO BLEEDING NOTED. WILL CONTINUE TO MONITOR.
[2022-09-23] MEDS: INSULIN REGULAR, HUMAN 100 UNIT/ML 3 ML VIAL SQ PRN (23:16)
[2022-09-24] MEDS: ANCEF 1 GM/50 ML D5W IV SCH ×6 (00:06→12:22)
[2022-09-24] MEDS: BLOOD SUGAR DIAGNOSTIC 1 EACH STRIP IN SCH ×4 (05:59→22:02)
[2022-09-24] MEDS: MORPHINE SULFATE INJ 2 MG/ML DISP.SYRIN IV PRN ×3 (06:35→20:33)
--- NOTE | 2022-09-24 06:35 | NUR ---
RN NOTE PT COMPLAINED OF LEFT ANKLE PAIN 9/10 PAIN SCALE. PRN MORPHINE INJ 4 MG GIVEN IV ORDERED. KEPT COMFORTABLE IN BED. WILL CONTINUE TO MONITOR AND REASSESS PT.
--- NOTE | 2022-09-24 06:50 | NUR ---
RN CLOSING NOTE PATIENT IN BED; AWAKE, A/O X4. STABLE ON ROOM AIR. IN NO ACUTE DISTRESS. WITH IV ACCESS ON LEFT FORE ARM 18G; PATENT, INTACT AND SALINE LOCKED. ALL NEEDS ATTENDED. SAFETY PRECAUTIONS IN PLACE: CALL LIGHT AND TABLE WITHIN REACH, SIDE RAILS UP X 2, BED IN LOWEST LOCKED POSITION. ENDORSED TO MORNING SHIFT FOR CHRISTIANO.
--- NOTE | 2022-09-24 07:00 | NUR ---
MS RN OPENING NOTES: RECEIVED PT IN BED, ASLEEP, EASILY AROUSED WITH STIMULI. LEBANESE SPEAKING BUT ABLE TO UNDERSTAND/COMMUNICATE IN [place]. NO SOB OR CARDIAC DISTRESS, ON ROOM AIR AND TOLERATING WELL. ON PAIN MANAGEMENT ORDERED,MAINTAINED NPO. IV ACCESS ON LFA GAUGE 18 PATENT,INTACT AND SALINE LOCKED. SAFETY MEASURES MAINTAINED: BED LOCKED AND IN LOWEST POSITION, SIDE RAILS UP X 2. CALL LIGHT IN EASY REACH AND WILL MONITOR PT ACCORDINGLY.
[2022-09-24 08:00] VITALS: BP_SYST 101; BP_SYST 150; BP_DIAS 68
[2022-09-24 08:08] LABS: BASOPHILS % (AUTO) 0.5 % (0.0-2.0); EOSINOPHILS % (AUTO) 3.2 % (0.0-6.0); HEMATOCRIT 33 % (39-51); HEMOGLOBIN 10.7 g/dL (13.5-17.5); LYMPHOCYTES % (AUTO) 15.4 % (20.0-44.0); MEAN CORPUSCULAR HGB CONC 33 g/dl (31.0-36.0); MEAN CORPUSCULAR VOLUME 79 fL (80-96); MONOCYTES # (AUTO) 0.5 K/uL (0.1-1.30); MONOCYTES % (AUTO) 7.4 % (2.0-12.0); NEUTROPHILS # (AUTO) 4.6 K/uL (1.8-8.9); NEUTROPHILS % (AUTO) 73.5 % (43.0-81.0); PLATELET COUNT (AUTO) 305 K/uL (150-450); RED BLOOD CELL COUNT(AUTO) 4.14 MIL/uL (4.5-6.0); WHITE BLOOD COUNT (AUTO) 6.3 K/uL (4.3-11.0)
[2022-09-24 08:24] LABS: ALBUMIN 3.1 g/dL (3.4-5.0); BILIRUBIN,TOTAL 0.7 mg/dL (0.2-1.0); CALCIUM, SERUM 9.4 mg/dL (8.5-10.1); MAGNESIUM 2.4 mg/dL (1.8-2.4); PHOSPHORUS 3.9 mg/dL (2.5-4.9); POTASSIUM 3.6 mmol/L (3.5-5.1)
[2022-09-24] MEDS: PANTOPRAZOLE 40 MG VIAL IV SCH (08:29)
[2022-09-24] MEDS: ASPIRIN 81 MG TAB.CHEW PO SCH (08:30)
[2022-09-24] MEDS: HEPARIN SODIUM, PORCINE 5000 UNITS/1 ML VIAL SQ SCH ×2 (08:30→21:28)
[2022-09-24 08:43] LABS: THYROID STIMULATING HORMONE 7.364 uIU/mL (0.358-3.74)
--- NOTE | 2022-09-24 08:45 | NUR ---
WOUND CARE CONSULT: PT PRESENTS WITH RT PLANTAR FOOT DRY ULCER AND LEFT ANKLE OPEN WOUND, PRESENT ON ADMISSION. ANKLE WOUND PROTECTED WITH SILVER OPTIFOAM DRESSING TIL SEEN BY ORTHO. DR STORY CALLED FOR DPM CONSULT ON RT FOOT ULCER. IN AGREEMENT WITH PLAN OF CARE.
--- NOTE | 2022-09-24 09:20 | NUR ---
RN NOTES: SEEN AND EXAMINED BY LENNOX RIDER, ORDERED TO RESUME DIET, POSSIBLE SURGERY ON TUESDAY. ORDERS NOTED AND CARRIED OUT. PROVIDED WATER AND JUICE AT BED SIDE.
[2022-09-24] MEDS: INSULIN REGULAR, HUMAN 100 UNIT/ML 3 ML VIAL SQ PRN ×3 (11:22→22:08)
[2022-09-24] MEDS ORDERED: DAPA5TAB PO (11:24)
[2022-09-24] MEDS ORDERED: POLY17PO4 PO (11:24)
[2022-09-24] MEDS ORDERED: LINA5TAB PO (11:24)
[2022-09-24] MEDS ORDERED: CHOL100043 PO (11:24)
[2022-09-24] MEDS ORDERED: INSU100V3 SQ (11:24)
[2022-09-24] MEDS ORDERED: HYDR-3980 PO (11:24)
[2022-09-24] MEDS ORDERED: FURO-144 PO (11:24)
[2022-09-24] MEDS ORDERED: NALO25TA PO (11:24)
[2022-09-24] MEDS ORDERED: ISOS30TA86 PO (11:24)
[2022-09-24] MEDS ORDERED: SEMA1PEN SQ (11:24)
[2022-09-24] MEDS ORDERED: RIVA10TA PO (11:24)
[2022-09-24] MEDS ORDERED: TAMS-12 PO (11:24)
[2022-09-24] MEDS ORDERED: METO25TA20 PO (11:24)
[2022-09-24] MEDS ORDERED: POTA10TA10 PO (11:24)
[2022-09-24] MEDS ORDERED: ESCI10TA PO (11:24)
[2022-09-24] MEDS ORDERED: METH5TAB6 PO (11:24)
[2022-09-24 16:00] VITALS: BP 135/78
--- NOTE | 2022-09-24 16:50 | NUR ---
RN NOTES: PT CONSENTED FOR WOUND DEBRIDEMENT ON RIGHT FOOT. DR BLAKELY DID THE WOUND DEBRIDEMENT.
--- NOTE | 2022-09-24 17:50 | NUR ---
RN NOTES: URINE COLLECTED AND CALLED LAB FOR PHYSICIAN EXTENDER.
--- NOTE | 2022-09-24 18:43 | NUR ---
MS RN CLOSING NOTES: PATIENT IN BED, AWAKE. A/O X 4 BOT[place] SPEAKER BUT ABLE TO UNDERSTAND AND COMMUNICATE IN FRISIAN. NO SOB OR CARDIAC DISTRESS, ON ROOM AIR AND TOLERATING WELL. IV ACCESS ON RAC GAUGE 20 PATENT, INTACT ANS SALINE LOCKED. WOUND CARE TREATMENT DONE ON LEFT ANKLE AND WRAPPED WITH ROLLED GAUZE. SAFETY MEASURES MAINTAINED: BED LOCKED AND IN LOWEST POSITION, SIDE RAILS UP X 2. CALL LIGHT IN EASY REACH FOR HELP. WILL MONITOR ACCORDINGLY. ENDORSED TO INTERIOR DESIGN INSTRUCTOR RN FOR CONTINUITY OF CARE.
--- NOTE | 2022-09-24 19:30 | NUR ---
RN OPENING NOTE RECEIVED PATIENT IN BED; AWAKE, ALERT AND ORIENTED X 4. VERBALLY RESPONSIVE. ESTONIAN SPEAKING ABLE TO COMMUNICATE AND UNDERSTAND UPPER [place]BI[place]. ON ROOM AIR; TOLERATING WELL. AFEBRILE. NOT IN ANY FORM OF RESPIRATORY OR CARDIAC DISTRESS. NO C/O PAIN OR DISCOMFORT. WITH IV ACCESS ON RIGHT AC 20g; PATENT, INTACT AND SALINE LOCKED. ABLE TO MAKE NEEDS KNOWN. SAFETY PRECAUTIONS IMPLEMENTED: CALL LIGHT AND TABLE WITHIN REACH, SIDE RAILS UP X 2, BED IN LOWEST LOCKED POSITION. WILL CONTINUE TO MONITOR THROUGHOUT SHIFT.
[2022-09-24 20:00] VITALS: BP 128/70
[2022-09-24] MEDS ORDERED: CEFEPIME 2 GM in IV D5W 100 ML IV SCH (20:00)
[2022-09-24] MEDS: LINEZOLID 600 MG TABLET PO SCH (20:33)
--- NOTE | 2022-09-24 20:33 | NUR ---
RN NOTE PATIENT COMPLAINED OF LEFT AND RIGHT ANKLE PAIN WITH PAIN SCALE OF 9/10. PRN MORPHINE SULFATE INJ 4 MG 2 ML GIVEN IV ORDERED. KEPT COMFORTABLE IN BED. WILL CONTINUE TO MONITOR AND REASSESS PT.
[2022-09-24] MEDS: MAGNESIUM HYDROXIDE 30 ML UDC PO PRN (20:42)
--- NOTE | 2022-09-24 22:08 | NUR ---
RN NOTE BLOOD SUGAR CHECKED WITH RESULT OF 204 MG/DL. 4 UNITS REGULAR INSULIN GIVEN SQ ORDERED PER SLIDING SCALE. WILL CONTINUE TO MONITOR PT FOR S/S OF HYPO/HYPERGLYCEMIA.
[2022-09-25 05:50] LABS: BASOPHILS % (AUTO) 0.5 % (0.0-2.0); EOSINOPHILS % (AUTO) 3.4 % (0.0-6.0); HEMATOCRIT 29 % (39-51); HEMOGLOBIN 9.4 g/dL (13.5-17.5); LYMPHOCYTES # (AUTO) 0.9 K/uL (0.8-4.8); MEAN CORPUSCULAR HGB CONC 33 g/dl (31.0-36.0); MEAN CORPUSCULAR VOLUME 78 fL (80-96); MONOCYTES # (AUTO) 0.5 K/uL (0.1-1.30); NEUTROPHILS # (AUTO) 3.8 K/uL (1.8-8.9); NEUTROPHILS % (AUTO) 70.1 % (43.0-81.0); PLATELET COUNT (AUTO) 265 K/uL (150-450); RED BLOOD CELL COUNT(AUTO) 3.67 MIL/uL (4.5-6.0); WHITE BLOOD COUNT (AUTO) 5.4 K/uL (4.3-11.0)
[2022-09-25 06:09] LABS: CREATININE 1.3 mg/dL (0.6-1.3); MAGNESIUM 2.1 mg/dL (1.8-2.4); PHOSPHORUS 3.3 mg/dL (2.5-4.9); POTASSIUM 3.4 mmol/L (3.5-5.1)
[2022-09-25] MEDS: BLOOD SUGAR DIAGNOSTIC 1 EACH STRIP IN SCH ×4 (06:09→21:33)
[2022-09-25] MEDS: INSULIN REGULAR, HUMAN 100 UNIT/ML 3 ML VIAL SQ PRN ×4 (06:42→22:03)
--- NOTE | 2022-09-25 06:50 | NUR ---
RN CLOSING NOTE PATIENT IN BED; AWAKE, A/O X4. STABLE ON ROOM AIR. IN NO ACUTE DISTRESS. WITH IV ACCESS ON RIGHT AC 18G; PATENT, INTACT AND SALINE LOCKED. ALL NEEDS ATTENDED. SAFETY PRECAUTIONS IN PLACE: CALL LIGHT AND TABLE WITHIN REACH, SIDE RAILS UP X 2, BED IN LOWEST LOCKED POSITION. ENDORSED TO MORNING SHIFT FOR CHRISTIANO.
--- NOTE | 2022-09-25 07:00 | NUR ---
MS RN OPENING NOTES: RECEIVED PT IN BED,AWAKE,ALERT AND ORIENTED X 4. CITIZEN OF [place] SPEAKING BUT ABLE TO UNDERSTAND/COMMUNICATE IN TUNISIAN. NO SOB OR CARDIAC DISTRESS, ON ROOM AIR AND TOLERATING WELL. ON PAIN MANAGEMENT ORDERED. IV ACCESS ON RAC GAUGE 20 PATENT,INTACT AND SALINE LOCKED. SAFETY MEASURES MAINTAINED: BED LOCKED AND IN LOWEST POSITION, SIDE RAILS UP X 2. CALL LIGHT IN EASY REACH AND WILL MONITOR PT ACCORDINGLY.
[2022-09-25 08:00] VITALS: BP 136/67
--- NOTE | 2022-09-25 08:05 | NUR ---
RN NOTES: PATIENT IN THE RESTROOM WANTED TO HAVE BM, ENCOURAGED TO USE COMMODE BUT PT INSISTED HE IS COMFORTABLE TO USE RESTROOM. ENCOURAGED PT NOT TO PUT PRESSURE ON HIS LEFT FOOT. PT AMBULATORY WITH CRUTCHES.
[2022-09-25] MEDS: PANTOPRAZOLE 40 MG VIAL IV SCH (08:50)
[2022-09-25] MEDS: METHIMAZOLE (5MG) 5 MG TABLET PO SCH ×2 (08:51→16:47)
[2022-09-25] MEDS: ATORVASTATIN 40 MG TABLET PO SCH (08:51)
[2022-09-25] MEDS: ESCITALOPRAM OXALATE (10 MG) 10 MG TABLET PO SCH (08:52)
[2022-09-25] MEDS: TAMSULOSIN 0.4 MG CAP.SR.24H PO SCH (08:52)
[2022-09-25] MEDS: ASPIRIN 81 MG TAB.CHEW PO SCH (08:52)
[2022-09-25] MEDS: GABAPENTIN 300 MG CAPSULE PO SCH ×3 (08:52→16:47)
[2022-09-25] MEDS: LINEZOLID 600 MG TABLET PO SCH ×2 (08:52→20:59)
[2022-09-25] MEDS: RANOLAZINE 500 MG TAB.ER.12H PO SCH ×2 (08:52→16:47)
[2022-09-25] MEDS: ISOSORBIDE MONONITRATE (30MG) 30 MG TAB.SR.24H PO SCH (08:53)
[2022-09-25] MEDS: HEPARIN SODIUM, PORCINE 5000 UNITS/1 ML VIAL SQ SCH ×2 (08:54→21:02)
[2022-09-25] MEDS: THERAHONEY GEL 1.5 OZ TUBE TP SCH (08:55)
[2022-09-25] MEDS: METOPROLOL TARTRATE 25 MG TABLET PO SCH ×2 (08:57→16:48)
[2022-09-25] MEDS ORDERED: HEPARIN SODIUM, PORCINE 5000 UNITS/1 ML VIAL SQ SCH (09:00)
[2022-09-25] MEDS: MORPHINE SULFATE INJ 2 MG/ML DISP.SYRIN IV PRN ×3 (09:39→21:41)
[2022-09-25] MEDS: CEFEPIME 2 GM in IV D5W 100 ML IV SCH ×2 (10:07→21:03)
--- NOTE | 2022-09-25 10:19 | NUR ---
RN NOTES: REINSERTED IV ON RFA GAUGE 22. PATENT AND INTACT AND FLUSHING WELL.
[2022-09-25] MEDS ORDERED: POTASSIUM CHLORIDE 20 MEQ TAB.PRT.SR PO ONE (12:00)
--- NOTE | 2022-09-25 12:00 | NUR ---
RN NOTES: WOUND CARE DONE.
--- NOTE | 2022-09-25 12:19 | NUR ---
RN NOTES: COLLECTED URINE SPECIMEN, CALLED [facility] (LAB) FOR WING COMMANDER.
[2022-09-25] MEDS: HYDROCODONE/APAP 5/325MG TABLET PO PRN (12:41)
[2022-09-25 13:27] LABS: BILIRUBIN,URINE NEGATIVE (NEGATIVE); COLOR,URINE YELLOW (YELLOW); LEUKOCYTE ESTERASE ,URINE NEGATIVE (NEGATIVE); NITRITE, URINE NEGATIVE (NEGATIVE); PROTEIN,URINE NEGATIVE (NEGATIVE); UGLUCOSE 3+ mg/dL (NEGATIVE); UROBILINOGEN,URINE 0.2 EU/dL (0.2)
[2022-09-25 13:28] LABS: BACTERIA,URINE Rare /HPF (None Seen); RBC,URINE 0-2 /HPF (0-2); SQUAMOUS EPITHELIAL CELL,UR Few /HPF (None Seen); WBC,URINE 0-2 /HPF (0-3)
[2022-09-25 13:29] LABS: CREATININE, URINE 67.2 MG/DL (30.0-125.0)
[2022-09-25 16:00] VITALS: BP 109/64
--- NOTE | 2022-09-25 18:15 | NUR ---
RN NOTES: WOUND CULTURE DONE ON LEFT ANKLE AND CALLED LAB ([facility]) FOR SPECIMEN UPPERS EDGE BURNISHER.
--- NOTE | 2022-09-25 18:48 | NUR ---
MS RN CLOSING NOTES: PATIENT IN BED, AWAKE. A/O X 4 NORWEGIAN SPEAKER BUT ABLE TO UNDERSTAND AND COMMUNICATE IN VIETNAMESE. NO SOB OR CARDIAC DISTRESS, ON ROOM AIR AND TOLERATING WELL. IV ACCESS ON RFA GAUGE 22 PATENT, INTACT ANS SALINE LOCKED. WOUND CARE TREATMENT DONE ON LEFT ANKLE AND LEFT FOOT AND WRAPPED WITH ROLLED GAUZE. SAFETY MEASURES MAINTAINED: BED LOCKED AND IN LOWEST POSITION, SIDE RAILS UP X 2. CALL LIGHT IN EASY REACH FOR HELP. WILL MONITOR ACCORDINGLY. ENDORSED TO PROFESSIONAL BASS FISHERMAN RN FOR CONTINUITY OF CARE.
--- NOTE | 2022-09-25 19:00 | NUR ---
RN OPENING NOTE RECEIVED PATIENT AWAKE AND RESTING IN BED. A/OX4, ABLE TO MAKE NEEDS KNOWN. PT IS IN RA, TOLERATING WELL, BREATHING EVEN AND UNLABORED @ THIS TIME. PT IV PRESENT ON RIGHT FOREARM #22 SALINE LOCK, PATENT, INTACT AND FLUSHES WELL. PT BEDSIDE COMMODE & URINAL IS @ BESIDE. SAFETY MEASURE IS IN PLACE. BED AT ITS LOWEST AND LOCK POSITION. SIDE RAILS UP X 2. BEDSIDE TABLE AND CALL LIGHT IS EASY REACH. BED ALARM IS ON. WILL CONTINUE TO MONITOR PT ACCORDINGLY.
[2022-09-25 20:00] VITALS: BP_SYST 111; BP_SYST 125; BP_DIAS 61; BP_DIAS 75
[2022-09-25 23:53] VITALS: BP 142/102
[2022-09-26] MEDS: BLOOD SUGAR DIAGNOSTIC 1 EACH STRIP IN SCH ×5 (06:00→21:40)
[2022-09-26] MEDS: INSULIN REGULAR, HUMAN 100 UNIT/ML 3 ML VIAL SQ PRN ×5 (06:23→22:06)
--- NOTE | 2022-09-26 06:42 | NUR ---
RN CLOSING NOTE PATIENT ASLEEP AND RESTING COMFORTABLY IN BED. A/OX4, ABLE TO MAKE NEEDS KNOWN. PT IS IN RA, NO RESPIRATORY DISTRESS, O2 SAT IS 97% @ THIS TIME. PT IV PRESENT ON RIGHT FOREARM #22 SALINE LOCK, PATENT, INTACT AND FLUSHES WELL W/ NO S & SX OF INFILTRATION. ADMINISTERED MEDICATION ACCORDINGLY PER MD'S ORDER. PT IS KEPT CLEAN, DRY AND COMFORTABLE. SAFETY MEASURE IS IN PLACE. BED AT ITS LOWEST AND LOCK POSITION. SIDE RAILS UP X 2. BEDSIDE TABLE AND CALL LIGHT IS EASY REACH. BED ALARM IS ON.WILL ENDORSE TO THE NEXT SHIFT FOR CONTINUITY OF CARE.
[2022-09-26 07:00] VITALS: BP 116/54
--- NOTE | 2022-09-26 07:45 | NUR ---
RN OPENING NOTE PATIENT ASLEEP AND RESTING COMFORTABLY IN BED. A/OX4, ABLE TO MAKE NEEDS KNOWN. PT IS IN RA, NO RESPIRATORY DISTRESS. PT IV PRESENT ON RIGHT FOREARM #22 SALINE LOCK, PATENT, INTACT AND FLUSHES WELL W/ NO S & SX OF INFILTRATION. SAFETY MEASURE IS IN PLACE. BED AT ITS LOWEST AND LOCK POSITION. SIDE RAILS UP X 2. BEDSIDE TABLE AND CALL LIGHT IS EASY REACH. BED ALARM IS ON.WILL CONTINUE TO MONITOR.
[2022-09-26] MEDS: PANTOPRAZOLE 40 MG TABLET.DR PO SCH (08:18)
[2022-09-26] MEDS: HYDROCODONE/APAP 5/325MG TABLET PO PRN (08:18)
[2022-09-26] MEDS: GABAPENTIN 300 MG CAPSULE PO SCH ×3 (08:19→16:50)
[2022-09-26] MEDS: METOPROLOL TARTRATE 25 MG TABLET PO SCH ×2 (08:19→16:51)
[2022-09-26] MEDS: METHIMAZOLE (5MG) 5 MG TABLET PO SCH ×2 (08:19→16:50)
[2022-09-26] MEDS: ATORVASTATIN 40 MG TABLET PO SCH (08:19)
[2022-09-26] MEDS: LINEZOLID 600 MG TABLET PO SCH ×2 (08:19→20:59)
[2022-09-26] MEDS: TAMSULOSIN 0.4 MG CAP.SR.24H PO SCH (08:20)
[2022-09-26] MEDS: ASPIRIN 81 MG TAB.CHEW PO SCH (08:20)
[2022-09-26] MEDS: RANOLAZINE 500 MG TAB.ER.12H PO SCH ×2 (08:20→16:50)
[2022-09-26] MEDS: ISOSORBIDE MONONITRATE (30MG) 30 MG TAB.SR.24H PO SCH (08:20)
[2022-09-26] MEDS: ESCITALOPRAM OXALATE (10 MG) 10 MG TABLET PO SCH (08:21)
[2022-09-26] MEDS ORDERED: *INSULIN REGULAR(HUMULIN R)HUM 100 UNIT/ML VIAL SQ PRN (08:30)
[2022-09-26] MEDS ORDERED: DEXTROSE 50%-WATER 50 ML DISP.SYRIN IV PRN (08:30)
[2022-09-26] MEDS: HEPARIN SODIUM, PORCINE 5000 UNITS/1 ML VIAL SQ SCH ×2 (08:33→21:00)
[2022-09-26] MEDS: THERAHONEY GEL 1.5 OZ TUBE TP SCH (09:11)
[2022-09-26] MEDS: CEFEPIME 2 GM in IV D5W 100 ML IV SCH ×2 (10:17→21:01)
[2022-09-26] MEDS: MAGNESIUM HYDROXIDE 30 ML UDC PO PRN (10:21)
[2022-09-26] MEDS: MORPHINE SULFATE INJ 2 MG/ML DISP.SYRIN IV PRN ×3 (12:30→21:31)
[2022-09-26] MEDS ORDERED: BISACODYL SUPP (10 MG) 10 MG/SUPP.RECT SUPP.RECT RC ONE (14:00)
[2022-09-26] MEDS: SOD FERRIC GLUC 125 MG in IV NS 0.9% 100 ML IV SCH (14:31)
[2022-09-26 16:00] VITALS: BP 109/58
--- NOTE | 2022-09-26 19:00 | NUR ---
RN OPENING NOTE RECEIVED REPORT FROM NURSE CODY. PT IS AWAKE, SITTING ON BED. A/O X 2. PT IS IN RA TOLERATING WELL, BREATHING EVEN AND UNLABORED @ THIS TIME. PT'S IV PRESENT ON RIGHT FOREARM SALINE LOCK PATENT, INTACT AND FLUSHES WELL, W/ NO S & SX OF INFILTRATION @ SITE NOTED. PT URINAL AND BEDSIDE COMMODE IS WITHIN REACH. SAFETY MEASURES IS IN PLACE. BED IS IN LOWEST AND LOCK POSITION. SIDE RAILS UP X 4. BEDSIDE TABLE AND CALL LIGHT IS EASY REACH. BED ALARM IS ON. WILL CONTINUE TO MONITOR PT ACCORDINGLY.
--- NOTE | 2022-09-26 19:12 | NUR ---
RN CLOSING NOTE PATIENT AWAKE IN BED A/OX4, ABLE TO MAKE NEEDS KNOWN. PT IS IN RA, NO RESPIRATORY DISTRESS, O2 SAT IS 97% @ THIS TIME. PT IV PRESENT ON RIGHT FOREARM #22 SALINE LOCK, PATENT, INTACT AND FLUSHES WELL W/ NO S & SX OF INFILTRATION. ADMINISTERED MEDICATION ACCORDINGLY PER MD'S ORDER. PT IS KEPT CLEAN, DRY AND COMFORTABLE. SAFETY MEASURE IS IN PLACE. WILL BE ON NPO POST MIDNIGHT FOR TOMORROW'S PROCEDURE, PATIENT MADE AWARE. BED AT ITS LOWEST AND LOCK POSITION. SIDE RAILS UP X 2. BEDSIDE TABLE AND CALL LIGHT IS EASY REACH. BED ALARM IS ON.WILL ENDORSE TO THE NEXT SHIFT FOR CONTINUITY OF CARE.
[2022-09-26 20:00] VITALS: BP 135/70
--- NOTE | 2022-09-27 01:00 | NUR ---
WOUND CARE AND DRESSING CHANGED DONE @ 54. WILL CONTINUE TO MONITOR PT.
[2022-09-27 05:53] LABS: BASOPHILS % (AUTO) 0.5 % (0.0-2.0); EOSINOPHILS % (AUTO) 2.6 % (0.0-6.0); HEMATOCRIT 28 % (39-51); LYMPHOCYTES # (AUTO) 0.8 K/uL (0.8-4.8); LYMPHOCYTES % (AUTO) 13.6 % (20.0-44.0); MEAN CORPUSCULAR HGB CONC 32 g/dl (31.0-36.0); MEAN CORPUSCULAR VOLUME 79 fL (80-96); MONOCYTES # (AUTO) 0.6 K/uL (0.1-1.30); MONOCYTES % (AUTO) 10.8 % (2.0-12.0); NEUTROPHILS # (AUTO) 4.2 K/uL (1.8-8.9); NEUTROPHILS % (AUTO) 72.5 % (43.0-81.0); PLATELET COUNT (AUTO) 236 K/uL (150-450); RED BLOOD CELL COUNT(AUTO) 3.52 MIL/uL (4.5-6.0); WHITE BLOOD COUNT (AUTO) 5.8 K/uL (4.3-11.0)
[2022-09-27 06:02] LABS: CALCIUM, SERUM 8.9 mg/dL (8.5-10.1); CREATININE 1.3 mg/dL (0.6-1.3); POTASSIUM 4.2 mmol/L (3.5-5.1)
[2022-09-27] MEDS: BLOOD SUGAR DIAGNOSTIC 1 EACH STRIP IN SCH ×5 (06:54→22:04)
[2022-09-27] MEDS: INSULIN REGULAR, HUMAN 100 UNIT/ML 3 ML VIAL SQ PRN ×3 (06:56→17:32)
--- NOTE | 2022-09-27 07:13 | NUR ---
RN VAZQUEZ NOTE PT IS AWAKE & RESTING COMFORTABLY IN BED. A/O X 4. PT IS IN RA TOLERATING WELL, BREATHING EVEN AND UNLABORED @ THIS TIME. PT'S IV PRESENT ON RIGHT FOREARM SALINE LOCK PATENT, INTACT AND FLUSHES WELL, W/ NO S & SX OF INFILTRATION @ SITE NOTED. PT URINAL AND BEDSIDE COMMODE IS WITHIN REACH. PT IS KEPT CLEAN, DRY AND COMFORTABLE. ADMINISTERED MEDICATION ACCORDING PER MD'S ORDER. PT IS KEPT NPO @ MIDNIGHT. SAFETY MEASURES IS IN PLACE. BED IS IN LOWEST AND LOCK POSITION. SIDE RAILS UP X 4. BEDSIDE TABLE AND CALL LIGHT IS EASY REACH. BED ALARM IS ON. WILL ENDORSE TO THE NEXT SHIFT FOR CONTINUITY OF CARE.
--- NOTE | 2022-09-27 07:15 | NUR ---
RN OPENING NOTE RECEIVED PT AWAKE & RESTING COMFORTABLY IN BED. A/O X 4. PT IS IN RA TOLERATING WELL, BREATHING EVEN AND UNLABORED @ THIS TIME. PT'S IV PRESENT ON RIGHT FOREARM SALINE LOCK PATENT, INTACT AND FLUSHES WELL, W/ NO S & SX OF INFILTRATION @ SITE NOTED. 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 SAFETY MEASURES IS IN PLACE. BED IS IN LOWEST AND LOCK POSITION. SIDE RAILS UP X 4. BEDSIDE TABLE AND CALL LIGHT IS EASY REACH. BED ALARM IS ON. WILL CONTINUE TO MONITOR THE PATIENT.
[2022-09-27] MEDS: PANTOPRAZOLE 40 MG TABLET.DR PO SCH ×2 (07:30→08:14)
[2022-09-27] MEDS: ASPIRIN 81 MG TAB.CHEW PO SCH ×2 (08:12→09:00)
[2022-09-27] MEDS: ATORVASTATIN 40 MG TABLET PO SCH ×2 (08:12→09:00)
[2022-09-27] MEDS: TAMSULOSIN 0.4 MG CAP.SR.24H PO SCH ×2 (08:13→09:00)
[2022-09-27] MEDS: ISOSORBIDE MONONITRATE (30MG) 30 MG TAB.SR.24H PO SCH (08:13)
[2022-09-27] MEDS: LINEZOLID 600 MG TABLET PO SCH ×2 (08:14→20:59)
[2022-09-27] MEDS: ESCITALOPRAM OXALATE (10 MG) 10 MG TABLET PO SCH ×2 (08:14→09:00)
[2022-09-27] MEDS: METHIMAZOLE (5MG) 5 MG TABLET PO SCH ×3 (08:14→17:26)
[2022-09-27] MEDS: RANOLAZINE 500 MG TAB.ER.12H PO SCH ×2 (08:14→17:26)
[2022-09-27] MEDS: METOPROLOL TARTRATE 25 MG TABLET PO SCH ×2 (08:14→17:26)
[2022-09-27] MEDS: GABAPENTIN 300 MG CAPSULE PO SCH ×4 (08:15→17:26)
[2022-09-27] MEDS: THERAHONEY GEL 1.5 OZ TUBE TP SCH (08:26)
[2022-09-27] MEDS: HEPARIN SODIUM, PORCINE 5000 UNITS/1 ML VIAL SQ SCH (08:27)
[2022-09-27 08:32] VITALS: BP 134/67
[2022-09-27] MEDS ORDERED: BUPIVACAINE 0.25% 75 MG/30 ML VIAL ONE (09:10)
[2022-09-27] MEDS ORDERED: POLYMYXIN B SULFATE 500,000 UNITS ONE ×2 (09:10→11:22)
[2022-09-27] MEDS ORDERED: VANCOMYCIN 1 GM VIAL ONE (09:10)
[2022-09-27] MEDS ORDERED: FENTANYL PF 250MCG/5ML AMPUL ONE (09:40)
[2022-09-27] MEDS ORDERED: MIDAZOLAM HCL 2 MG/2ML VIAL ONE (09:41)
[2022-09-27] MEDS ORDERED: SENNOSIDES 8.6 MG TABLET PO PRN ×2 (13:00)
[2022-09-27] MEDS ORDERED: DOCUSATE SODIUM 100 MG CAPSULE PO PRN (13:00)
[2022-09-27] MEDS ORDERED: ACETAMINOPHEN 325 MG TABLET PO PRN (13:00)
[2022-09-27] MEDS ORDERED: HYDROCODONE/APAP 5/325MG TABLET PO PRN (13:00)
[2022-09-27] MEDS ORDERED: BISACODYL SUPP (10 MG) 10 MG/SUPP.RECT SUPP.RECT RC PRN (13:00)
[2022-09-27] MEDS ORDERED: DOCUSATE SODIUM 250 MG CAPSULE PO PRN (13:00)
[2022-09-27] MEDS: MORPHINE SULFATE INJ 4 MG/ML DISP.SYRIN IV PRN ×2 (13:52→18:03)
[2022-09-27] MEDS: CEFEPIME 2 GM in IV D5W 100 ML IV SCH ×2 (13:58→22:11)
[2022-09-27] MEDS: SOD FERRIC GLUC 125 MG in IV NS 0.9% 100 ML IV SCH (14:01)
[2022-09-27 16:46] VITALS: BP 127/62
--- NOTE | 2022-09-27 19:17 | NUR ---
RN CLOSING NOTE PT IS AWAKE & RESTING COMFORTABLY IN BED. A/O X 4. PT IS IN RA TOLERATING WELL, BREATHING EVEN AND UNLABORED @ THIS TIME. PT'S IV PRESENT ON RIGHT FOREARM SALINE LOCK PATENT, INTACT AND FLUSHES WELL, W/ NO S & SX OF INFILTRATION @ SITE NOTED. PT URINAL AND BEDSIDE COMMODE IS WITHIN REACH. PT IS KEPT CLEAN, DRY AND COMFORTABLE. ADMINISTERED MEDICATION ACCORDING PER MD'S ORDER. SAFETY MEASURES IS IN PLACE. BED IS IN LOWEST AND LOCK POSITION. SIDE RAILS UP X 4. BEDSIDE TABLE AND CALL LIGHT IS EASY REACH. BED ALARM IS ON. WILL ENDORSE TO THE NEXT SHIFT FOR CONTINUITY OF CARE.
--- NOTE | 2022-09-27 19:45 | NUR ---
MS MARY ELLEN INITIAL NOTES RECEIVED REPORT FROM AM NURSE AND CHECKED THE PATIENT , SEEN IN HIS BED AWAKE AND ALERT WATCHING TV AT THIS TIME. HEPLOCK PATENT AND INTACT . DRESSING ON HIS LEFT ANKLE DRY AND INTACT. HE'S COMPLAINING OF PAIN AT THIS TIME ON HIS LEFT ANKLE AND FOOT. 01/03, HE 'S ASKING FOR MORPHINE BUT I TOLD HIM THAT ITS DUE TILL 10 PM THEN I OFFERED NORCO TABLET INSTEAD AND HE'S AGREED WITH IT AND HE REQUESTED TO HAVE 2 TABLET . KEPT HIM WARM AND COMFORTABLE AT ALL TIMES. PLACE CALL LIGHT AT REACH.
[2022-09-27] MEDS: HYDROCODONE/APAP 5/325MG TABLET PO PRN (19:57)
--- NOTE | 2022-09-27 19:57 | NUR ---
MS HAZARDOUS WASTE REMOVER NOTES NORCO TABLET 2 GIVEN PO ORDERED FOR HIS PAIN . OFFERED ICE PACK BUT HE REFUSED IT. WILL RE- ASSESS LATER.
[2022-09-27 20:00] VITALS: BP 148/79
--- NOTE | 2022-09-27 22:15 | NUR ---
MS MARY ELLEN NOTES BLOOD SUGAR CHECKED DONE 347, 8 UNITS OF INSULIN ARTHUR SQ ORDERED. NO SIGNS OF HYPERGLYCLEMIA NOTED. SNAKCS ALSO SERVED. WILL CONTINUE MONITORING, PLACE ALL LIGHT AT REACH.
[2022-09-28] MEDS: PANTOPRAZOLE 40 MG TABLET.DR PO SCH (06:20)
[2022-09-28] MEDS: HYDROCODONE/APAP 5/325MG TABLET PO PRN (06:21)
[2022-09-28] MEDS: INSULIN REGULAR, HUMAN 100 UNIT/ML 3 ML VIAL SQ PRN ×4 (06:22→22:29)
--- NOTE | 2022-09-28 06:41 | NUR ---
ms brazer crawler torch closing notes Pt woke up and complaining of left ankle pain, Gordon 2 tablet given as ordered . Protonix also given to prevent pt him get heartburn or GERD . pt understood well, Blood sugar checked also 269, 12 units of insulin given brendan SQ as ordered. Pt slept well but seem anxious getting home. all due meds given and all needs met. Kept him warm and comfortable at all times. Bed in low and lock in position with side rails X2 up and place call light at reach. will endorse to am nurse for continuity of care.
[2022-09-28 07:30] VITALS: BP 153/85
--- NOTE | 2022-09-28 07:30 | NUR ---
MS RN OPENING NOTES RECEIVED PT RESTING IN BED, AO X4, AMBULATORY W/ CRUTCHES. PATIENT IN NO DISTRESS, DENIES ANY PAIN. ON ROOM AIR, NO SOB/DIFFICULTY BREATHING. V/S STABLE. IV ACCESS ON R HAND 20G SL. SAFETY PRECAUTIONS MAINTAINED. SIDE RAILS UP X2, CALL LIGHT WITHIN REACH. NO S/SX OF DISTRESS. PT ASKING WHEN CAN HE BE DISCHARGED. WILL CONTINUE TO MONITOR.
[2022-09-28] MEDS: BLOOD SUGAR DIAGNOSTIC 1 EACH STRIP IN SCH ×4 (07:32→22:13)
[2022-09-28] MEDS: ASPIRIN 81 MG TAB.CHEW PO SCH (08:40)
[2022-09-28] MEDS: TAMSULOSIN 0.4 MG CAP.SR.24H PO SCH (08:40)
[2022-09-28] MEDS: GABAPENTIN 300 MG CAPSULE PO SCH ×3 (08:41→17:43)
[2022-09-28] MEDS: ESCITALOPRAM OXALATE (10 MG) 10 MG TABLET PO SCH (08:41)
[2022-09-28] MEDS: METOPROLOL TARTRATE 25 MG TABLET PO SCH ×2 (08:41→17:46)
[2022-09-28] MEDS: ATORVASTATIN 40 MG TABLET PO SCH (08:41)
[2022-09-28] MEDS: METHIMAZOLE (5MG) 5 MG TABLET PO SCH ×2 (08:41→17:43)
[2022-09-28] MEDS: RANOLAZINE 500 MG TAB.ER.12H PO SCH ×2 (08:41→17:43)
[2022-09-28] MEDS: LINEZOLID 600 MG TABLET PO SCH ×2 (08:41→20:29)
[2022-09-28] MEDS: ISOSORBIDE MONONITRATE (30MG) 30 MG TAB.SR.24H PO SCH (08:42)
[2022-09-28] MEDS: HEPARIN SODIUM, PORCINE 5000 UNITS/1 ML VIAL SQ SCH ×2 (08:43→20:30)
[2022-09-28] MEDS: THERAHONEY GEL 1.5 OZ TUBE TP SCH (09:00)
[2022-09-28] MEDS: MORPHINE SULFATE INJ 4 MG/ML DISP.SYRIN IV PRN (09:14)
[2022-09-28 09:22] LABS: BASOPHILS % (AUTO) 0.2 % (0.0-2.0); EOSINOPHILS % (AUTO) 0.1 % (0.0-6.0); HEMATOCRIT 29 % (39-51); HEMOGLOBIN 9.5 g/dL (13.5-17.5); LYMPHOCYTES % (AUTO) 14.9 % (20.0-44.0); MEAN CORPUSCULAR HGB CONC 33 g/dl (31.0-36.0); MEAN CORPUSCULAR VOLUME 79 fL (80-96); MONOCYTES # (AUTO) 0.6 K/uL (0.1-1.30); MONOCYTES % (AUTO) 8.8 % (2.0-12.0); NEUTROPHILS # (AUTO) 5.1 K/uL (1.8-8.9); PLATELET COUNT (AUTO) 258 K/uL (150-450); RED BLOOD CELL COUNT(AUTO) 3.71 MIL/uL (4.5-6.0); WHITE BLOOD COUNT (AUTO) 6.7 K/uL (4.3-11.0)
[2022-09-28 10:05] LABS: ALANINE AMINOTRANSFERASE < 6 U/L (12-78); ALBUMIN 2.8 g/dL (3.4-5.0); ALKALINE PHOSPHATASE 89 U/L (46-116); ASPARTATE AMINOTRANSFERASE 13 U/L (15-37); BILIRUBIN,TOTAL 0.8 mg/dL (0.2-1.0); CALCIUM, SERUM 9.1 mg/dL (8.5-10.1); CARBON DIOXIDE 30 mmol/L (21-32); CHLORIDE 99 mmol/L (98-107); CREATININE 1.5 mg/dL (0.6-1.3); GLUCOSE 254 mg/dL (74-106); MAGNESIUM 2.2 mg/dL (1.8-2.4); PHOSPHORUS 3.1 mg/dL (2.5-4.9); POTASSIUM 4.3 mmol/L (3.5-5.1); SODIUM SERUM 135 mmol/L (136-145); TOTAL PROTEIN, SERUM 8.1 g/dL (6.4-8.2); UREA NITROGEN, BLOOD 23 mg/dL (7-18)
[2022-09-28] MEDS: CEFEPIME 2 GM in IV D5W 100 ML IV SCH ×2 (10:08→21:38)
[2022-09-28] MEDS: SOD FERRIC GLUC 125 MG in IV NS 0.9% 100 ML IV SCH (14:50)
[2022-09-28 16:00] VITALS: BP 120/60
[2022-09-28] MEDS: PROSOURCE / PROSTAT (PYXIS) 30 ML UDC GT SCH (17:00)
--- NOTE | 2022-09-28 18:52 | NUR ---
MS RN closing NOTES PT RESTING IN BED, AO X4, AMBULATORY W/ CRUTCHES. PATIENT IN NO DISTRESS, DENIES ANY PAIN. ON ROOM AIR, NO SOB/DIFFICULTY BREATHING. V/S STABLE. IV ACCESS ON R HAND 20G SL. SAFETY PRECAUTIONS MAINTAINED. ON IV ABX. PAIN MGT NEEDED. SIDE RAILS UP X2, CALL LIGHT WITHIN REACH. NO S/SX OF DISTRESS. WILL ENDORSE TO NEXT SHIFT.
--- NOTE | 2022-09-28 19:30 | NUR ---
MS RN OPENING NOTE RECEIVED PT AWAKE IN BED. PATIENT IS A/O X 4. PT IS IN RA TOLERATING WELL, BREATHING EVEN AND UNLABORED . IV ACCESS ON RIGHT FOREARM G # 20 SALINE LOCK PATENT, INTACT AND FLUSHES WELL. NO INFILTRATION NOTED. S/P OF LEFT ANKLE SURGERY AT 09/26/22. DRESSING INTACT AND CLEAN. NO DRAINAGE NOTED. ALL SAFETY MEASURES IS IN PLACE. BED IS IN LOWEST AND LOCK POSITION. SIDE RAILS UP X 2. BEDSIDE TABLE AND CALL LIGHT IS EASY REACH. BED ALARM IS ON. WILL CONTINUE TO MONITOR THE PATIENT.
[2022-09-28 20:00] VITALS: BP 125/65
[2022-09-28] MEDS: MORPHINE SULFATE INJ 2 MG/ML DISP.SYRIN IV PRN (20:40)
--- NOTE | 2022-09-28 20:40 | NUR ---
RN NOTES PRN MORPHINE GIVEN AT 2039 FOR PAIN OF 8/10 OF THE LEFT ANKLE PER MD ORDER. WILL REASSESS PAIN IN 30 MIN.
[2022-09-29] MEDS: BLOOD SUGAR DIAGNOSTIC 1 EACH STRIP IN SCH ×2 (06:05→12:11)
[2022-09-29] MEDS: INSULIN REGULAR, HUMAN 100 UNIT/ML 3 ML VIAL SQ PRN ×2 (06:07→12:23)
--- NOTE | 2022-09-29 06:34 | NUR ---
MS RN CLOSING NOTE PT AWAKE IN BED. PATIENT IS A/O X 4. PT IS IN RA TOLERATING WELL, BREATHING EVEN AND UNLABORED . IV ACCESS ON RIGHT FOREARM G # 20 SALINE LOCK PATENT, INTACT AND FLUSHES WELL. NO INFILTRATION NOTED. S/P OF LEFT ANKLE SURGERY AT 09/26/22. DRESSING INTACT AND CLEAN. NO DRAINAGE NOTED. ALL DUE MEDS GIVEN ORDERED.ALL SAFETY MEASURES IS IN PLACE. BED IS IN LOWEST AND LOCK POSITION. SIDE RAILS UP X 2. BEDSIDE TABLE AND CALL LIGHT IS EASY REACH. BED ALARM IS ON. WILL ENDORSE FOR CHRISTIANO.
[2022-09-29 07:00] VITALS: BP 136/69
--- NOTE | 2022-09-29 07:30 | NUR ---
MS RN OPENING NOTES RECEIVED PT ASLEEP IN BED IN SIDE LYING POSITION, AO X4, AMBULATORY W/ CRUTCHES. PATIENT IN NO DISTRESS, ON ROOM AIR. NO SIGNS/SYMPTOMS OF PAIN/SOB/DIFFICULTY BREATHING. V/S STABLE. IV ACCESS ON R HAND 20G SL. SAFETY PRECAUTIONS MAINTAINED. SIDE RAILS UP X2, CALL LIGHT WITHIN REACH. NO S/SX OF DISTRESS. WILL CONTINUE TO MONITOR.
[2022-09-29] MEDS: PROSOURCE / PROSTAT (PYXIS) 30 ML UDC GT SCH (09:00)
[2022-09-29] MEDS: ASPIRIN 81 MG TAB.CHEW PO SCH (09:32)
[2022-09-29] MEDS: ATORVASTATIN 40 MG TABLET PO SCH (09:32)
[2022-09-29] MEDS: ESCITALOPRAM OXALATE (10 MG) 10 MG TABLET PO SCH (09:32)
[2022-09-29 09:33] VITALS: BP 136/69
[2022-09-29] MEDS: METHIMAZOLE (5MG) 5 MG TABLET PO SCH (09:33)
[2022-09-29] MEDS: LINEZOLID 600 MG TABLET PO SCH (09:33)
[2022-09-29] MEDS: TAMSULOSIN 0.4 MG CAP.SR.24H PO SCH (09:33)
[2022-09-29] MEDS: METOPROLOL TARTRATE 25 MG TABLET PO SCH (09:33)
[2022-09-29] MEDS: ISOSORBIDE MONONITRATE (30MG) 30 MG TAB.SR.24H PO SCH (09:33)
[2022-09-29] MEDS: RANOLAZINE 500 MG TAB.ER.12H PO SCH (09:34)
[2022-09-29] MEDS: GABAPENTIN 300 MG CAPSULE PO SCH ×2 (09:34→12:22)
[2022-09-29] MEDS: HEPARIN SODIUM, PORCINE 5000 UNITS/1 ML VIAL SQ SCH (09:34)
[2022-09-29] MEDS: PANTOPRAZOLE 40 MG TABLET.DR PO SCH (09:38)
[2022-09-29] MEDS: THERAHONEY GEL 1.5 OZ TUBE TP SCH (09:38)
[2022-09-29] MEDS: CEFEPIME 2 GM in IV D5W 100 ML IV SCH (10:16)
[2022-09-29] MEDS: MORPHINE SULFATE INJ 4 MG/ML DISP.SYRIN IV PRN (10:37)
--- NOTE | 2022-09-29 11:13 | NUR ---
RN MS NOTES PT SEEN AND EXAMINED BY DR. HANSON, DISCHARGE PLAN DISCUSSED WITH PT, PT EDUCATION PROVIDED, VERBALIZED UNDERSTANDING, PICC LINE BEING INSERTED ORDERED.
[2022-09-29] MEDS ORDERED: DAPT500V2 IV (11:24)
[2022-09-29] MEDS ORDERED: ASPI-1169 PO (11:24)
[2022-09-29] MEDS ORDERED: CEFE2FRO IV (11:24)
--- NOTE | 2022-09-29 13:47 | NUR ---
RN MS NOTES PT AWAKE, ALERT AND ORIENTED, NO COMPLAINT OF PAIN AT THIS TIME, RESPIRATIONS NORMAL, ADAMANT IN GOING HOME, SEEN AND EXAMINED BY DR. HANSON, DISCHARGE AND MEDICATION INSTRUCTIONS PROVIDED TO PT, VERBALIZED UNDERSTANDING, NO BLEEDING NOTED TO DRESSING TO LEFT LOWER LEG, BELONGINGS ACCOUNTED FOR, PT IS IN A HURRY TO LEAVE AND REFUSED WOUND PHOTOS, HOME HEALTH, IV MEDS AND WHEELCHAIR ARRANGED BY CAMPUS SECURITY DIRECTOR JOVON, ASSISTED TO WHEELCHAIR, ASSISTED TO HOSPITAL LOBBY BY JUANITA, PICKED UP BY FRIEND, LEFT VIA PRIVATE CAR IN STABLE CONDITION.
== END 2022-09-29 13:40 | disposition home health service (06) | DRG 901 ==
LOC: ER 14:41 → MED 19:40
PROVIDERS: ADMIT Nurse Practitioner Acute Care; ATTEND Internal Medicine
PROC: 02HV33Z Insertion of Infusion Device into Superior Vena Cava, Percutaneous Approach (ICD-10-PCS; 2022-09-23)
PROC: B548ZZA Ultrasonography of Superior Vena Cava, Guidance (ICD-10-PCS; 2022-09-23)
PROC: 0JBQ0ZZ Excision of Right Foot Subcutaneous Tissue and Fascia, Open Approach (ICD-10-PCS; principal; 2022-09-24)
PROC: 0QPK04Z Removal of Internal Fixation Device from Left Fibula, Open Approach (ICD-10-PCS; 2022-09-27)
PROC: 0QPH04Z Removal of Internal Fixation Device from Left Tibia, Open Approach (ICD-10-PCS; 2022-09-27)
DX: T81.31XA Disruption of external operation (surgical) wound, not elsewhere classified, initial encounter (principal); N17.0 Acute kidney failure with tubular necrosis; E87.1 Hypo-osmolality and hyponatremia; I13.0 Hypertensive heart and chronic kidney disease with heart failure and stage 1 through stage 4 chronic kidney disease, or unspecified chronic kidney disease; L03.116 Cellulitis of left lower limb; D50.9 Iron deficiency anemia, unspecified; E11.22 Type 2 diabetes mellitus with diabetic chronic kidney disease; N18.9 Chronic kidney disease, unspecified; I50.9 Heart failure, unspecified; Z20.822 Contact with and (suspected) exposure to COVID-19; E11.42 Type 2 diabetes mellitus with diabetic polyneuropathy; E11.621 Type 2 diabetes mellitus with foot ulcer; L97.519 Non-pressure chronic ulcer of other part of right foot with unspecified severity; Y83.8 Other surgical procedures as the cause of abnormal reaction of the patient, or of later complication, without mention of misadventure at the time of the procedure; Y92.009 Unspecified place in unspecified non-institutional (private) residence as the place of occurrence of the external cause; Z79.82 Long term (current) use of aspirin; Z79.02 Long term (current) use of antithrombotics/antiplatelets; Z79.4 Long term (current) use of insulin; Z79.899 Other long term (current) drug therapy; I25.10 Atherosclerotic heart disease of native coronary artery without angina pectoris; Z98.61 Coronary angioplasty status; E11.622 Type 2 diabetes mellitus with other skin ulcer; E11.65 Type 2 diabetes mellitus with hyperglycemia; D63.8 Anemia in other chronic diseases classified elsewhere; E66.01 Morbid (severe) obesity due to excess calories; Z68.35 Body mass index [BMI] 35.0-35.9, adult; E78.5 Hyperlipidemia, unspecified; E87.6 Hypokalemia; I27.20 Pulmonary hypertension, unspecified; F17.200 Nicotine dependence, unspecified, uncomplicated; E11.51 Type 2 diabetes mellitus with diabetic peripheral angiopathy without gangrene; Z91.199 Patient's noncompliance with other medical treatment and regimen due to unspecified reason; Z82.49 Family history of ischemic heart disease and other diseases of the circulatory system; Z83.3 Family history of diabetes mellitus; Z95.1 Presence of aortocoronary bypass graft; Z96.652 Presence of left artificial knee joint
CPT/HCPCS: 36415; 71045-TC; 73600-TC; 73610-TC; 76770-TC; 80048-TC; 80053-TC; 80061-TC; 80076-TC; 81001; 82570-TC; 82962-TC; 83540-TC; 83735-TC; 83880; 84100-TC; 84300-TC; 84443-TC; 85025-TC; 85610-TC; 85652-TC; 85730-TC; 86140-TC; 86850-TC; 87081-TC; 93307-TC; 97116-TC; 97530-TC; A4217; A4223; A4649; A6253; A6403; C9113; C9803; G0378; J0690; J0692; J1644; J1815; J2250; J2270; J2370; J2704; J2916; J3010; J3370; J3490; J7030; J7040; J7050; J7060

== ENCOUNTER 2022-10-04 12:45 | Outpatient (CLI) | payer MEDICARE, OTHER ==
[~2022-10-04 12:45] MED LIST changes: -AMIT50TA3 PO; -AMLO-213 PO; -APRE30TA2 PO; -BISA-79 PO; -BLOO-668 IN; -BUME2TAB7 PO; -CARV25TA2 PO; +CEFE2FRO IV; +CHOL100043 PO; -CLOB15CR4 TP; -CLOP75TA15 PO; +DAPA5TAB PO; +DAPT500V2 IV; -DOCU100C36 PO; +ESCI10TA PO; -FLUO30CR11 TP; +FURO-144 PO; +HYDR-3980 PO; -INSU100V27 SQ; +INSU100V3 SQ; +ISOS30TA86 PO; -ISOS60TA72 PO; +LINA5TAB PO; -LORA10TA7 PO; +METH5TAB6 PO; +METO25TA20 PO; +NALO25TA PO; -PANT40TA49 PO; +POLY17PO4 PO; +POTA10TA10 PO; +RIVA10TA PO; -SECU150S SQ; +SEMA1PEN SQ; -SENN-261 PO; -SIME80TA15 PO; +TAMS-12 PO; -TRIA15OI2 TP
== END 2022-10-04 23:59 | disposition home health service (06) ==
LOC: WOU 12:45
PROVIDERS: ATTEND Surgery
DX: T81.89XA Other complications of procedures, not elsewhere classified, initial encounter (principal); L03.116 Cellulitis of left lower limb; E66.9 Obesity, unspecified; Z68.36 Body mass index [BMI] 36.0-36.9, adult; M79.672 Pain in left foot; I25.10 Atherosclerotic heart disease of native coronary artery without angina pectoris; I11.0 Hypertensive heart disease with heart failure; I50.9 Heart failure, unspecified; Z87.891 Personal history of nicotine dependence; E78.5 Hyperlipidemia, unspecified; Z95.1 Presence of aortocoronary bypass graft; E11.9 Type 2 diabetes mellitus without complications; Z79.4 Long term (current) use of insulin
CPT/HCPCS: G0463

== ENCOUNTER 2022-10-08 12:16 | Inpatient (IN) | payer MEDICARE, OTHER ==
[~2022-10-08] VITALS: Ht 185.4 cm; Wt 131.5 kg
--- NOTE | 2022-10-08 13:26 | NUR ---
COVID SWAB COLLECTED AND SENT TO LAB.
--- NOTE | 2022-10-08 13:26 | NUR ---
BLOOD COLLECTED AND SENT TO LAB
[2022-10-08] MEDS ORDERED: ONDANSETRON HCL/PF 4 MG/2 ML VIAL ONE (13:28)
[2022-10-08] MEDS ORDERED: MORPHINE SULFATE INJ 4 MG/ML DISP.SYRIN ONE (13:28)
[2022-10-08 13:30] LABS: BASOPHILS % (AUTO) 0.4 % (0.0-2.0); EOSINOPHILS % (AUTO) 1.5 % (0.0-6.0); HEMATOCRIT 24 % (39-51); LYMPHOCYTES # (AUTO) 0.6 K/uL (0.8-4.8); LYMPHOCYTES % (AUTO) 7.8 % (20.0-44.0); MEAN CORPUSCULAR HGB CONC 33 g/dl (31.0-36.0); MEAN CORPUSCULAR VOLUME 81 fL (80-96); MONOCYTES # (AUTO) 0.7 K/uL (0.1-1.30); NEUTROPHILS # (AUTO) 6.6 K/uL (1.8-8.9); NEUTROPHILS % (AUTO) 81.3 % (43.0-81.0); PLATELET COUNT (AUTO) 205 K/uL (150-450); RED BLOOD CELL COUNT(AUTO) 3.01 MIL/uL (4.5-6.0); WHITE BLOOD COUNT (AUTO) 8.1 K/uL (4.3-11.0)
[2022-10-08] MEDS ORDERED: MORPHINE SULFATE INJ 2 MG/ML DISP.SYRIN IV ONE (13:30)
[2022-10-08] MEDS ORDERED: ONDANSETRON HCL/PF 4 MG/2 ML VIAL IV ONE (13:30)
[2022-10-08 13:44] LABS: CALCIUM, SERUM 8.2 mg/dL (8.5-10.1); CREATININE 1.8 mg/dL (0.6-1.3); POTASSIUM 4.4 mmol/L (3.5-5.1)
--- NOTE | 2022-10-08 13:51 | NUR ---
MOVE SHEET SUBMITTED.
--- NOTE | 2022-10-08 14:09 | NUR ---
CALLED STACEY SAINZ FOR DR MARES. ON THE PHONE WITH SAVANNAH ZHOU
[2022-10-08] MEDS ORDERED: ASPI-1169 PO (14:24)
--- NOTE | 2022-10-08 15:28 | NUR ---
BED ASSIGNED, GOING TO 314.1, ADMITTING AWARE.
--- NOTE | 2022-10-08 15:42 | NUR ---
REPORT GIVEN TO MICHEAL NEWTON.
[2022-10-08] MEDS ORDERED: DICLOFENAC TOPICAL 100 GM TUBE TP PRN (16:30)
[2022-10-08] MEDS ORDERED: ONDANSETRON HCL/PF 4 MG/2 ML VIAL IVP PRN (17:00)
[2022-10-08] MEDS ORDERED: MAGNESIUM HYDROXIDE 30 ML UDC PO PRN (17:00)
[2022-10-08] MEDS ORDERED: DEXTROSE 50%-WATER 50 ML DISP.SYRIN IV PRN (17:00)
[2022-10-08] MEDS ORDERED: Z GUARD REMEDY 4 OZ OINT TP PRN (17:00)
[2022-10-08] MEDS ORDERED: MAG HYDROX/AL HYDROX/SIMETH 30 ML UDC PO PRN (17:00)
[2022-10-08] MEDS ORDERED: ACETAMINOPHEN 325 MG TABLET PO PRN (17:00)
[2022-10-08] MEDS: RANOLAZINE 500 MG TAB.ER.12H PO SCH (18:58)
[2022-10-08] MEDS: GABAPENTIN 300 MG CAPSULE PO SCH (18:59)
[2022-10-08] MEDS: METOPROLOL TARTRATE 25 MG TABLET PO SCH (19:00)
[2022-10-08] MEDS: BLOOD SUGAR DIAGNOSTIC 1 EACH STRIP VI SCH ×2 (19:07→23:37)
[2022-10-08] MEDS: INSULIN REGULAR, HUMAN 100 UNIT/ML 3 ML VIAL SQ PRN (19:10)
--- NOTE | 2022-10-08 19:30 | NUR ---
MS RN NOTES PATIENT COMPLAINS OF LEFT ANKLE PAIN /. PRN NORCO 10/325 MG PO GIVEN PER MD ORDER FOR PAIN. WILL REASSESS PAIN IN 1 HOUR.
--- NOTE | 2022-10-08 19:30 | NUR ---
RN OPENING NOTES RECEIVED PATIENT AWAKE IN BED. PATIENT IS A/O TIMES 4. ABLE TO MAKE NEEDS KNOWN. NO PAIN NOTED. NO SOB NOTED. BREATHING EVEN AND UNLABORED. IV ACCESS ON THE RIGHT UPPER ARM PICC LINE G # 18 INTACT AND FLUSHING WELL. LEFT ANKLE WOUND DRESSING NOTED INTACT . NO ACTIVE BLEEDING NOTED. ALL SAFETY MEASURES IN PLACE. BED LOCKED IN THE LOWEST POSITION. CALL LIGHT AND TABLE IN EASY REACH. SIDE RAILS UP TIMES 2. WILL CONTINUE TO MONITOR CLOSELY.
[2022-10-08] MEDS: HYDROCODONE/APAP 10/325MG TABLET PO PRN (19:47)
--- NOTE | 2022-10-08 19:59 | NUR ---
Received patient via gurney at 1614, assigned to room 314-1, patient A/O x4, breathing evenly and unlabored on room air. No signs of distress noted. Vitals taken: T-98.4; BP- 121/61; HR-84; RR-16; SPo2-100. No edema present. Bowel sounds active, patient has PICC line at Right upper arm #18 SL C/D/I. Skin assessment: patient is s/p removal of left ankle cast with wound present both lateral sides of ankle mortise with serosanguineous drainage, photos taken. Wound care performed: cleanse with NS, pat dry, applied xeroform on both sides finalized with dressing and tape. Oral medications given as ordered by MD. Endorsement made with pm shift nurse: Caution with bleeding due to lab critical report received late this afternoon. APTT >170, MD informed. Received call from pharmacy past shift time re: Methimazole 5 mg tab PO BID, (reported by patient) to be reconciled by MD. Patient was awake, A/O x4, has taken dinner, stable, no s/s of distress at the moment. Safety protocol in placed, endorsed to pm shift nurse for CHRISTIANO.
[2022-10-08 20:00] VITALS: BP 111/64
[2022-10-08] MEDS: CEFEPIME 2 GM in IV D5W 100 ML IV SCH (20:45)
[2022-10-08] MEDS: LINEZOLID 600 MG TABLET PO SCH (20:55)
[2022-10-08] MEDS: hydrOXYzine 10 MG TABLET PO SCH (20:56)
[2022-10-08] MEDS: *INSULIN REGULAR(HUMULIN R)HUM 100 UNIT/ML VIAL SQ PRN (22:58)
--- NOTE | 2022-10-09 05:53 | NUR ---
RN NOTES BEFORE BREAKFAST BLOOD SUGAR RESULT IS 89. HELD INSULIN ADMINISTRATION.
[2022-10-09] MEDS: HYDROCODONE/APAP 10/325MG TABLET PO PRN ×2 (06:11→16:37)
--- NOTE | 2022-10-09 06:21 | NUR ---
RN NOTES PATIENT COMPLAINS OF PAIN OF LEFT ANKLE 02/03. PRN NORCO 10/325 MG PO GIVEN FOR PAIN AT 0611. WILL REASSESS PAIN IN 1 HOUR.
--- NOTE | 2022-10-09 06:39 | NUR ---
MS RN CLOSING NOTES PATIENT AWAKE IN BED. PATIENT IS A/O TIMES 4. ABLE TO MAKE NEEDS KNOWN. COMPLAINS OF 8/10 LEFT ANKLE PAIN. NORCO 10/325 MG PO GIVEN AT 0611. NO SOB NOTED. BREATHING EVEN AND UNLABORED. IV ACCESS ON THE RIGHT UPPER ARM PICC LINE G # 18 INTACT AND FLUSHING WELL. LEFT ANKLE WOUND DRESSING CHANGED . NO ACTIVE BLEEDING NOTED. ALL DUE MEDS GIVEN ORDERED. ALL SAFETY MEASURES IN PLACE. BED LOCKED IN THE LOWEST POSITION. CALL LIGHT AND TABLE IN EASY REACH. SIDE RAILS UP TIMES 2. WILL ENDORSE FOR CHRISTIANO.
[2022-10-09 07:06] LABS: BASOPHILS % (AUTO) 0.4 % (0.0-2.0); EOSINOPHILS % (AUTO) 2.3 % (0.0-6.0); HEMATOCRIT 25 % (39-51); HEMOGLOBIN 8.5 g/dL (13.5-17.5); LYMPHOCYTES % (AUTO) 12.8 % (20.0-44.0); MEAN CORPUSCULAR HGB CONC 34 g/dl (31.0-36.0); MEAN CORPUSCULAR VOLUME 80 fL (80-96); MONOCYTES # (AUTO) 0.9 K/uL (0.1-1.30); MONOCYTES % (AUTO) 11.5 % (2.0-12.0); NEUTROPHILS # (AUTO) 5.9 K/uL (1.8-8.9); PLATELET COUNT (AUTO) 225 K/uL (150-450); RED BLOOD CELL COUNT(AUTO) 3.15 MIL/uL (4.5-6.0)
[2022-10-09 07:23] LABS: CREATININE 1.9 mg/dL (0.6-1.3); MAGNESIUM 2.2 mg/dL (1.8-2.4); POTASSIUM 4.6 mmol/L (3.5-5.1)
--- NOTE | 2022-10-09 07:40 | NUR ---
MS RN OPENING NOTES; RECEIVED PATIENT ASLEEP, EASILY ROUSED, A/O X4, ABLE TO MAKE NEEDS KNOWN. ON RA WITH NO S/S OF SOB NOTED, BREATHING EVEN AND UNLABORED. REPORTS PAIN 3/10 AT THIS TIME. IV ACCESS ON THE RIGHT UPPER ARM PICC LINE G # 18 INTACT AND FLUSHING WELL, KVO NS @ 5ML/HR. LEFT ANKLE WOUND DRESSING NOTED, WITH SCANT AMOUNT OF PINKISH STAIN, OTHERWISE CLEAN AND INTACT. ALL SAFETY MEASURES IN PLACE; BED LOCKED IN THE LOWEST POSITION. CALL LIGHT AND TABLE IN EASY REACH, WILL CONT WITH PLAN OF CARE DURING SHIFT.
[2022-10-09 08:00] VITALS: BP 136/70
[2022-10-09] MEDS: CHOLECALCIFEROL 1,000 UNIT TABLET (VIT D3) PO SCH (08:12)
[2022-10-09] MEDS: CEFEPIME 2 GM in IV D5W 100 ML IV SCH ×2 (08:12→21:36)
[2022-10-09] MEDS: BLOOD SUGAR DIAGNOSTIC 1 EACH STRIP VI SCH ×4 (08:12→21:55)
[2022-10-09] MEDS: ATORVASTATIN 40 MG TABLET PO SCH (08:13)
[2022-10-09] MEDS: LINEZOLID 600 MG TABLET PO SCH ×2 (08:13→21:37)
[2022-10-09] MEDS: GABAPENTIN 300 MG CAPSULE PO SCH ×3 (08:13→16:11)
[2022-10-09] MEDS: ASPIRIN 81 MG TAB.CHEW PO SCH (08:13)
[2022-10-09] MEDS: LINAGLIPTIN 5 MG TABLET PO SCH (08:13)
[2022-10-09] MEDS: FUROSEMIDE 40 MG TABLET PO SCH (08:13)
[2022-10-09] MEDS: RANOLAZINE 500 MG TAB.ER.12H PO SCH ×2 (08:15→16:11)
[2022-10-09] MEDS: TAMSULOSIN 0.4 MG CAP.SR.24H PO SCH (08:16)
[2022-10-09] MEDS: ESCITALOPRAM OXALATE (10 MG) 10 MG TABLET PO SCH (08:16)
[2022-10-09] MEDS: ISOSORBIDE MONONITRATE (30MG) 30 MG TAB.SR.24H PO SCH (08:29)
[2022-10-09] MEDS: METOPROLOL TARTRATE 25 MG TABLET PO SCH ×2 (08:30→16:12)
[2022-10-09] MEDS: hydrOXYzine 10 MG TABLET PO SCH ×4 (08:34→21:37)
[2022-10-09] MEDS ORDERED: DAPTOMYCIN 500 MG/VIAL VIAL IV SCH (09:00)
[2022-10-09] MEDS ORDERED: RIVAROXABAN 10 MG TABLET PO SCH (09:00)
--- NOTE | 2022-10-09 09:09 | NUR ---
LAMAR NOTES: PT ASKED FOR PAIN MEDICATION, LEVEL 8-/10 GENERALIZED BACK PAIN, MEDICATED ORDERED Addendum: 10/09/22 at 0920 by JACKIE MCCRARY RN PLEASE DISREGARD THIS NOTE FOR THIS PATIENT
[2022-10-09] MEDS: POLYETHYLENE GLYCOL 3350 17 GM POWD.PACK PO SCH (09:50)
[2022-10-09] MEDS: INSULIN REGULAR, HUMAN 100 UNIT/ML 3 ML VIAL SQ PRN ×2 (11:41→16:59)
[2022-10-09] MEDS ORDERED: PHYTONADIONE INJ 10 MG/1 ML AMPUL SQ ONE ×2 (12:00→18:30)
[2022-10-09 12:50] LABS: THYROID STIMULATING HORMONE 0.897 uIU/mL (0.358-3.74)
[2022-10-09 13:06] LABS: ALBUMIN 2.6 g/dL (3.4-5.0); BILIRUBIN,DIRECT 0.3 mg/dL (0.0-0.2); BILIRUBIN,TOTAL 0.8 mg/dL (0.2-1.0); TOTAL PROTEIN, SERUM 7.4 g/dL (6.4-8.2)
[2022-10-09 15:59] LABS: CREATININE, URINE 46.5 MG/DL (30.0-125.0)
[2022-10-09 16:13] LABS: BILIRUBIN,URINE NEGATIVE (NEGATIVE); COLOR,URINE YELLOW (YELLOW); LEUKOCYTE ESTERASE ,URINE NEGATIVE (NEGATIVE); NITRITE, URINE NEGATIVE (NEGATIVE); PROTEIN,URINE 1+ mg/dl (NEGATIVE); UGLUCOSE 3+ mg/dL (NEGATIVE); UROBILINOGEN,URINE 0.2 EU/dL (0.2)
--- NOTE | 2022-10-09 16:13 | NUR ---
RN NOTES: HOLD 1700 BP MED, BP= 103/58; HR= 76
[2022-10-09 16:16] VITALS: BP 103/58
[2022-10-09 16:22] LABS: BACTERIA,URINE None seen /HPF (None Seen); HYALINE CASTS, URINE Few /LPF (None Seen); MUCUS,URINE Few /LPF (None Seen); RBC,URINE 0-2 /HPF (0-2); SQUAMOUS EPITHELIAL CELL,UR 0-2 /HPF (None Seen); WBC,URINE 0-2 /HPF (0-3)
--- NOTE | 2022-10-09 18:43 | NUR ---
MS RN CLOSING NOTES: PATIENT ASLEEP, EASILY ROUSED, A/O X4, ABLE TO MAKE NEEDS KNOWN. ON RA WITH NO S/S OF SOB NOTED, BREATHING EVEN AND UNLABORED. REPORTS PAIN 2/10 AT THIS TIME. IV ACCESS ON THE RIGHT UPPER ARM PICC LINE G# 18 INTACT AND FLUSHING WELL, RUNNING NS @ 5ML/HR, KVO. DRESSING CHANGED AT LEFT ANKLE WOUND, KEPT C/D/I. ALL DUE MEDS GIVEN, KEPT PT COMFORTABLE, ALL NEEDS MET. ALL SAFETY MEASURES IN PLACE; BED LOCKED IN THE LOWEST POSITION. CALL LIGHT AND TABLE IN EASY REACH, WILL ENDORSE TO PM SHIFT.
--- NOTE | 2022-10-09 19:30 | NUR ---
MS RN OPENING NOTES RECEIVED PT AWAKE IN BED. A/O X4, ABLE TO MAKE NEEDS KNOWN. ON RA WITH NO S/S OF SOB NOTED, BREATHING EVEN AND UNLABORED. REPORTS PAIN 9/10 AT THIS TIME, EXPLAINED TO PT THAT NEXT PAIN MEDICATION IS NOT DUE UNTIL 11 PM. VERBALIZED UNDERSTANDING. IV ACCESS ON THE RIGHT UPPER ARM PICC LINE G# 18 INTACT AND FLUSHING WELL, RUNNING NS @ 5ML/HR, KVO. DRESSING AT LEFT ANKLE WOUND, C/D/I. FOR NPO STARTING MIDNIGHT. SAFETY MEASURES IN PLACE: BED LOCKED IN THE LOWEST POSITION, CALL LIGHT AND TABLE IN EASY REACH. WILL CONTINUE TO MONITOR AND ASSIST.
[2022-10-09 20:00] VITALS: BP 113/61
[2022-10-09] MEDS: *INSULIN REGULAR(HUMULIN R)HUM 100 UNIT/ML VIAL SQ PRN (21:58)
[2022-10-10] MEDS: BLOOD SUGAR DIAGNOSTIC 1 EACH STRIP VI SCH (06:47)
[2022-10-10] MEDS: INSULIN REGULAR, HUMAN 100 UNIT/ML 3 ML VIAL SQ PRN (06:47)
--- NOTE | 2022-10-10 06:47 | NUR ---
RN NOTE BLOOD GLUCOSE: 183. INSULIN HELD DUE TO NPO DIAGNOSIS.
[2022-10-10 07:00] VITALS: BP 144/80
[2022-10-10 07:01] LABS: BASOPHILS % (AUTO) 0.6 % (0.0-2.0); EOSINOPHILS % (AUTO) 3.7 % (0.0-6.0); HEMATOCRIT 28 % (39-51); HEMOGLOBIN 8.6 g/dL (13.5-17.5); LYMPHOCYTES # (AUTO) 0.8 K/uL (0.8-4.8); LYMPHOCYTES % (AUTO) 12.9 % (20.0-44.0); MEAN CORPUSCULAR HGB CONC 31 g/dl (31.0-36.0); MEAN CORPUSCULAR VOLUME 84 fL (80-96); MONOCYTES # (AUTO) 0.7 K/uL (0.1-1.30); MONOCYTES % (AUTO) 11.7 % (2.0-12.0); NEUTROPHILS # (AUTO) 4.3 K/uL (1.8-8.9); NEUTROPHILS % (AUTO) 71.1 % (43.0-81.0); PLATELET COUNT (AUTO) 217 K/uL (150-450); RED BLOOD CELL COUNT(AUTO) 3.29 MIL/uL (4.5-6.0)
--- NOTE | 2022-10-10 07:02 | NUR ---
MS RN CLOSING NOTES PT SLEEPING IN BED, EASILY AROUSABLE. A/O X4, ABLE TO MAKE NEEDS KNOWN. STABLE ON RA WITH NO S/S OF SOB NOTED, BREATHING EVEN AND UNLABORED. DENIES PAIN AT THIS TIME. IV ACCESS ON THE RIGHT UPPER ARM PICC LINE G# 18 INTACT AND FLUSHING WELL, RUNNING NS @ 5ML/HR, KVO. DRESSING AT LEFT ANKLE WOUND, C/D/I, CHANGED ONCE DURING SHFT. NPO SINCE MIDNIGHT. ALL CARE PROVIDED AND MEDS TOLERATED WELL. SAFETY MEASURES MAINTAINED: BED LOCKED IN THE LOWEST POSITION, CALL LIGHT AND TABLE IN EASY REACH. WILL ENDORSE CHRISTIANO TO DAY SHIFT NURSE.
--- NOTE | 2022-10-10 07:45 | NUR ---
MS RN OPENING NOTES: RECEIVED PATIENT ASLEEP, EASILY ROUSED, A/O X4, ABLE TO MAKE NEEDS KNOWN. ON RA WITH NO S/S OF SOB NOTED, BREATHING EVEN AND UNLABORED. REPORTS PAIN 2/10 AT THIS TIME. IV ACCESS ON THE RIGHT UPPER ARM PICC LINE G # 18 INTACT AND FLUSHING WELL, KVO NS @ 5ML/HR. LEFT ANKLE WOUND DRESSING NOTED, WITH SCANT AMOUNT OF PINKISH STAIN, OTHERWISE CLEAN AND INTACT. ALL SAFETY MEASURES IN PLACE; BED LOCKED IN THE LOWEST POSITION. CALL LIGHT AND TABLE IN EASY REACH, WILL CONT WITH PLAN OF CARE DURING SHIFT.
[2022-10-10 08:10] LABS: CALCIUM, SERUM 8.7 mg/dL (8.5-10.1); CREATININE 1.6 mg/dL (0.6-1.3); POTASSIUM 3.8 mmol/L (3.5-5.1)
[2022-10-10] MEDS: POLYETHYLENE GLYCOL 3350 17 GM POWD.PACK PO SCH (09:00)
[2022-10-10] MEDS: FUROSEMIDE 40 MG TABLET PO SCH (09:07)
[2022-10-10] MEDS: GABAPENTIN 300 MG CAPSULE PO SCH (09:07)
[2022-10-10] MEDS: ESCITALOPRAM OXALATE (10 MG) 10 MG TABLET PO SCH (09:07)
[2022-10-10] MEDS: CHOLECALCIFEROL 1,000 UNIT TABLET (VIT D3) PO SCH (09:07)
[2022-10-10 09:08] VITALS: BP 144/80
[2022-10-10] MEDS: TAMSULOSIN 0.4 MG CAP.SR.24H PO SCH (09:08)
[2022-10-10] MEDS: ISOSORBIDE MONONITRATE (30MG) 30 MG TAB.SR.24H PO SCH (09:08)
[2022-10-10] MEDS: LINEZOLID 600 MG TABLET PO SCH (09:08)
[2022-10-10] MEDS: ATORVASTATIN 40 MG TABLET PO SCH (09:08)
[2022-10-10] MEDS: METOPROLOL TARTRATE 25 MG TABLET PO SCH (09:08)
[2022-10-10] MEDS: RANOLAZINE 500 MG TAB.ER.12H PO SCH (09:08)
[2022-10-10] MEDS: ASPIRIN 81 MG TAB.CHEW PO SCH (09:09)
[2022-10-10] MEDS: LINAGLIPTIN 5 MG TABLET PO SCH (09:09)
[2022-10-10] MEDS: hydrOXYzine 10 MG TABLET PO SCH (09:11)
[2022-10-10] MEDS: CEFEPIME 2 GM in IV D5W 100 ML IV SCH (09:11)
--- NOTE | 2022-10-10 11:00 | NUR ---
MS RN DC NOTES: PT STABLE FOR DC PER MD. VITALS WNL, ON RA WITH NO SOB. DC INSTRUCTIONS, BELONGINGS AND MEDICATIONS DISCUSSED WITH PT, VERBALIZED UNDERSTANDING AND SIGNED DOCUMENTS. MEDICAL RECORDS GIVEN TO PT. ID BAND REMOVED, PICC LINE REMAINED IN PLACE TO CONT IV ANTIBIOTICS AT HOME. WOUND CARE DONE, PHOTO TAKEN, PLACED IN CHART. PT LEFT UNIT VIA WHEELCHAIR, ESCORTED BY STAFF, LEFT IN PRIVATE CAR.
[2022-10-11 09:07] LABS: IMMUNOGLOBULIN A, SERUM 363 mg/dL (61-437); IMMUNOGLOBULIN G, SERUM 2168 mg/dL (603-1613); IMMUNOGLOBULIN M, SERUM 153 mg/dL (20-172)
[2022-10-11 16:07] LABS: *SPE A/G RATIO 0.7 (0.7-1.7); *SPE ALPHA-1-GLOBULIN 0.4 g/dL (0.0-0.4); *SPE ALPHA-2-GLOBULIN 0.9 g/dL (0.4-1.0); *SPE BETA GLOBULIN 0.9 g/dL (0.7-1.3); *SPE M-SPIKE Not Observed g/dL (Not Observed)
== END 2022-10-10 11:30 | disposition home health service (06) | DRG 919 ==
LOC: ER 12:29 → MED 15:37
PROVIDERS: ADMIT Internal Medicine; ATTEND Internal Medicine
DX: L76.22 Postprocedural hemorrhage of skin and subcutaneous tissue following other procedure (principal); N17.0 Acute kidney failure with tubular necrosis; I13.0 Hypertensive heart and chronic kidney disease with heart failure and stage 1 through stage 4 chronic kidney disease, or unspecified chronic kidney disease; T84.117A Breakdown (mechanical) of internal fixation device of bone of left lower leg, initial encounter; L97.329 Non-pressure chronic ulcer of left ankle with unspecified severity; Y83.8 Other surgical procedures as the cause of abnormal reaction of the patient, or of later complication, without mention of misadventure at the time of the procedure; Y92.89 Other specified places as the place of occurrence of the external cause; S82.852G Displaced trimalleolar fracture of left lower leg, subsequent encounter for closed fracture with delayed healing; Z79.01 Long term (current) use of anticoagulants; X58.XXXD Exposure to other specified factors, subsequent encounter; D50.9 Iron deficiency anemia, unspecified; D63.8 Anemia in other chronic diseases classified elsewhere; E11.22 Type 2 diabetes mellitus with diabetic chronic kidney disease; E11.42 Type 2 diabetes mellitus with diabetic polyneuropathy; E11.622 Type 2 diabetes mellitus with other skin ulcer; E11.610 Type 2 diabetes mellitus with diabetic neuropathic arthropathy; E66.01 Morbid (severe) obesity due to excess calories; E78.5 Hyperlipidemia, unspecified; I25.10 Atherosclerotic heart disease of native coronary artery without angina pectoris; F17.210 Nicotine dependence, cigarettes, uncomplicated; I48.0 Paroxysmal atrial fibrillation; I27.20 Pulmonary hypertension, unspecified; I50.9 Heart failure, unspecified; N18.9 Chronic kidney disease, unspecified; Z79.4 Long term (current) use of insulin; Z79.82 Long term (current) use of aspirin; Z79.84 Long term (current) use of oral hypoglycemic drugs; Z79.899 Other long term (current) drug therapy; Z83.3 Family history of diabetes mellitus; Z82.49 Family history of ischemic heart disease and other diseases of the circulatory system; Z91.198 Patient's noncompliance with other medical treatment and regimen for other reason; Z95.1 Presence of aortocoronary bypass graft; Z95.5 Presence of coronary angioplasty implant and graft; Z96.652 Presence of left artificial knee joint; K21.9 Gastro-esophageal reflux disease without esophagitis; M19.90 Unspecified osteoarthritis, unspecified site
CPT/HCPCS: 36415; 71045-TC; 73610-TC; 76770-TC; 80048-TC; 80076-TC; 81001; 82570-TC; 82607-TC; 82728-TC; 82784; 82962-TC; 83540-TC; 83735-TC; 84100-TC; 84155; 84165; 84300-TC; 84443-TC; 85025-TC; 85045-TC; 85385-TC; 85610-TC; 85730-TC; 86334; 87081-TC; 93970-TC; A4223; A6253; A6403; C9803; G0378; J0692; J1815; J2270; J2405; J3430; J7050; J7060; Q0177

== ENCOUNTER 2022-11-24 12:50 | Outpatient (CLI) | payer MEDICARE, OTHER ==
[~2022-11-24 12:50] MED LIST changes: -RIVA10TA PO
== END 2022-11-24 23:59 | disposition home health service (06) ==
LOC: WOU 12:50
PROVIDERS: ATTEND Podiatrist Foot & Ankle Surgery
DX: E11.622 Type 2 diabetes mellitus with other skin ulcer (principal); L97.322 Non-pressure chronic ulcer of left ankle with fat layer exposed; L03.116 Cellulitis of left lower limb; E11.610 Type 2 diabetes mellitus with diabetic neuropathic arthropathy; E66.9 Obesity, unspecified; Z68.36 Body mass index [BMI] 36.0-36.9, adult; M79.672 Pain in left foot; Z79.84 Long term (current) use of oral hypoglycemic drugs
CPT/HCPCS: 11042; 73600; A4649; A6209

== ENCOUNTER 2022-12-08 12:02 | Outpatient (CLI) | payer MEDICARE, OTHER | END 2022-12-08 23:59 | disposition home health service (06) | LOC: WOU 12:02 | PROVIDERS: ATTEND Podiatrist Foot & Ankle Surgery | DX: E11.622 Type 2 diabetes mellitus with other skin ulcer (principal); L97.328 Non-pressure chronic ulcer of left ankle with other specified severity; L97.322 Non-pressure chronic ulcer of left ankle with fat layer exposed; L03.116 Cellulitis of left lower limb; E11.610 Type 2 diabetes mellitus with diabetic neuropathic arthropathy; M79.672 Pain in left foot; E66.9 Obesity, unspecified; Z68.36 Body mass index [BMI] 36.0-36.9, adult | CPT/HCPCS: 29405; A6209 ==